=== PATIENT | female | born 1990 | race Two or more races ===

== ENCOUNTER 2021-06-29 07:10 | Emergency (ER) | payer MEDICAID, SELFPAY ==
[2021-06-29 08:05] VITALS: BP 111/70; PULSE 68; RESP 18; TEMP 36.5; O2SAT 99; BMI 20.6
--- NOTE | 2021-06-29 08:09 | ED_ITS ---
HPI - Extremity Injury (Upper) General Chief Complaint: Wound/Laceration Stated Complaint: finger lac Time Seen by Provider: 06/29/21 08:08 Source: patient Mode of arrival: ambulatory Limitations: no limitations History of Present Illness HPI narrative: left index superficial lac with knife ,pt is left handed complaint: injury to: left and finger (index) Other Extremity Injury: left: fingers (index finger) Other injuries: none Handedness: left Place: home Severity: mild Relieving factors: none Exacerbating factors: none Context: laceration Associated symptoms: denies other symptoms Related Data Allergies Allergy/AdvReac Type Severity Reaction Status Date / Time acetaminophen [Vicodin] Allergy Unknown Verified 07/06/19 00:00 hydrocodone [Vicodin] Allergy Unknown Verified 07/06/19 00:00 ibuprofen [IBUPROFEN] AdvReac Intermediate HEADACHES Unverified 04/10/20 16:05 From VICODIN Allergy Unknown ICTHY Uncoded 04/10/20 16:05 Motrin Allergy Unknown Uncoded 07/06/19 00:00 Review of Systems Review of Systems: Yes all other systems are reviewed and are negative ENT: Reports system reviewed and no additional complaints, except as documented Cardiovascular: Cardiovascular: Reports no additional cardiovascular complaints Respiratory: Respiratory: Reports no additional respiratory complaints Gastrointestinal: Gastrointestinal: Reports no additional gastrointestinal complaints Neurologic: Reports system reviewed and no additional complaints, except as documented [facility] Past Medical History Medical History Asthma Migraines Surgical History (Updated 06/29/21 @ 08:10 by Kayla Dinh) H/O tubal ligation Social History Social History Advance Directives: No Advance Directives Information Provided: No Physical Exam Vital Signs: Vital Signs: Last Vital Signs Temp 97.7 F 06/29/21 08:05 Pulse 68 06/29/21 08:05 Resp 18 06/29/21 08:05 BP 111/70 06/29/21 08:05 Pulse Ox 99 06/29/21 08:05 BMI result Body Mass Index 20.6 Const: General: cooperative, healthy appearing and no acute distress Nutritional Appearance: average body habitus Orientation/consciousness: patient oriented x3 HENMT: Head: Yes normal to inspection Face and sinus: Yes normal facial exam Chest: Chest palpation & inspection: normal inspection of the chest Resp: Effort & Inspection: normal respiratory effort Cardio: Jugular venous distension: no JVD Rate: regular rate GI: Inspection: Yes normal to inspection Neuro: General: patient oriented x3 Extrem: Other: left hand ,pt has full ROM left index finger,in the radial aspect proxinal phalanx index finger there is a very superficial laceration 2 cm in leght Procedures Laceration left index finger: Side (If applicable): left Size (cm): 2 Description: linear and clean Depth: simple, single layer Skin layer closed with: other (Dermabond) Discharge Plan Discharge Clinical Impression: Laceration Patient Disposition: Home, Self-Care Instructions: Laceration (ED) Additional Instructions: keep wound clean,return if fever,redness,drainage from the wound Stand Alone Forms: Work/School Release
[2021-06-29] MEDS: Diphth,Pertus(ACell),Tet Adult 0.5 ML SYRINGE IM (08:40)
== END 2021-06-29 08:55 | disposition home or self-care (01) ==
PROVIDERS: Emergency Provider Emergency Medicine
DX: S61.211A Laceration without foreign body of left index finger without damage to nail, initial encounter (principal); W26.0XXA Contact with knife, initial encounter; Y93.9 Activity, unspecified; Y92.009 Unspecified place in unspecified non-institutional (private) residence as the place of occurrence of the external cause; Y99.9 Unspecified external cause status
CPT/HCPCS: 12001; 90471; 90715; 99284

== ENCOUNTER 2022-12-13 10:58 | Outpatient (REF) | payer MEDICAID, SELFPAY ==
--- NOTE | ~2022-12-13 | MM_ITS ---
EXAMINATION: MM DIAGNOSTIC DIGITAL BREAST TOMOSYNTHESIS, BILATERAL US DIAGNOSTIC ULTRASOUND BREAST, RIGHT CLINICAL INFORMATION: 32-year-old with intermittent chronic lateral right breast discomfort sometimes cyclical. No erythema or discharge. Small palpable area noted right 8:00 position. Benign contralateral left breast ultrasound-guided core biopsy 2010 (benign breast tissue, no clip placed). The lifetime risk of breast cancer based on the Tyrer-Cuzick Model is 16%. COMPARISON: No prior mammography. TECHNIQUE: Digital breast tomosynthesis is performed in both the craniocaudal and mediolateral oblique views along with computer-aided detection (CAD). Synthesized 2D images are generated from the tomosynthesis. Ultrasound right breast is targeted to the areas of clinical concern. Patient is able to point to the area of palpable concern at time of imaging. Grayscale imaging and color Doppler are performed without and with harmonics. FINDINGS: The breasts are heterogeneously dense, which may obscure small masses (ACR BI-RADS breast composition Category c). There are no significant masses, abnormal calcifications, or other abnormalities. There is no cyst architectural abnormality. No skin thickening or coarsening of the stromal markings. The axilla are unremarkable. There are bilateral nipple piercings. Ultrasound right breast demonstrates tiny simple cyst at site of palpable concern 8:00 position anterior to mid depth measuring just under 0.5 cm. There is no solid mass or architectural abnormality. No focal duct ectasia. No skin thickening or edema tracking in soft tissue planes. No hyperemia. Results are discussed with the patient at time of visit. MM/MM tomosynthesis diagnostic BI IMPRESSION: -No mammographic evidence of malignancy or inflammatory changes. -Tiny simple cyst at site of palpable concern right breast 8:00 position. ASSESSMENT: BI-RADS 2: Benign RECOMMENDATION: 1. Patient should be managed based on the clinical impression. If there is still clinically palpable concerns, further evaluation may be considered with surgical consult. Decision to proceed with biopsy should be based on clinical grounds and degree of clinical concern. 2. Otherwise, routine annual screening mammography, beginning age 40, or earlier as clinical risk factors warrant. This patient's information was entered into a reminder system with a target due date for their next mammogram.
== END 2022-12-13 10:59 | disposition home or self-care (01) ==
LOC: HO.MAMMO 10:58
PROVIDERS: PCP Advanced Practice Midwife; Visit Provider Advanced Practice Midwife
DX: N63.15 Unspecified lump in the right breast, overlapping quadrants (principal)
CPT/HCPCS: 76642; 77062; 77066

== ENCOUNTER 2022-12-30 08:04 | Outpatient (REF) | payer MEDICAID, SELFPAY ==
--- NOTE | 2022-12-30 08:10 | EMG_ITS ---
Right median and ulnar motor and sensory studies were performed. Right radial sensory study was performed and paraspinal muscles were tested with a needle. IMPRESSION: Mild to moderate right median neuropathy across carpal tunnel. MD DANIELLE Blake/KELSEY / [id number]
== END 2022-12-30 08:05 | disposition home or self-care (01) ==
LOC: HO.NEURO 08:04
PROVIDERS: PCP Advanced Practice Midwife; Visit Provider Nurse Practitioner Family
DX: G56.01 Carpal tunnel syndrome, right upper limb (principal)
CPT/HCPCS: 95886; 95909

== ENCOUNTER 2023-03-01 14:18 | Outpatient (REF) | payer MEDICAID, SELFPAY ==
--- NOTE | ~2023-03-01 | US_ITS ---
EXAMINATION: US EXTREMITY NONVASCULAR CLINICAL INFORMATION: 3 cm painful mass dorsal aspect left foot. COMPARISON: None TECHNIQUE: Sonographic imaging performed by the mineral technologist along the dorsal foot in region of palpable mass. 12 MHz linear transducer was utilized. The images acquired are uploaded into the electronic picture archive for review. FINDINGS: The limited imaging performed shows presence of a 2.2 x 1 x 2.4 cm cystic structure in the dorsal foot. There are septations within this structure which has no internal flow on color Doppler imaging. The surrounding soft tissues have normal echotexture. On the limited imaging obtained, there is no visible tendon within the [id number]. US/US extremity nonvascular IMPRESSION: A septated cystic structure in the dorsal foot at the site of palpable concern could represent a ganglion cyst.
== END 2023-03-01 14:19 | disposition home or self-care (01) ==
LOC: HO.US 14:18
PROVIDERS: PCP Advanced Practice Midwife; Visit Provider Registered Nurse
DX: R22.42 Localized swelling, mass and lump, left lower limb (principal)
CPT/HCPCS: 76882

== ENCOUNTER 2023-04-12 12:16 | Outpatient (AMB) | payer MEDICAID, SELFPAY ==
--- NOTE | 2023-04-12 12:24 | A.OFFVIS_ITS ---
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 States CTS started about 5-6 yrs ago. States its worse in the morning and at night time. She has constant numbness and tingling during the day. EMG done only in right hand. Patient reports she is also having numbness in left hand. States she also has pain by base of her thumb with gripping and pinching motion. 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 She complains of numbness and tingling primarily in her right hand but also in her left. Feels that her whole hand goes numb. Her symptoms are intermittent but daily. 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 She also complains of pain about the medial aspect of the elbow that can radiate up to our armpit and some pain that radiates up to her shoulder. He is not sure if she has numbness in her small finger when her hand gets numb. [facility] Medical History Asthma Migraines Surgical History (Updated 06/29/21 @ 08:10 by Kayla Dinh) H/O tubal ligation Social History Current occupational status: employed Current occupation: [employer]/ rt hand Physical Exam Const General: cooperative, healthy appearing and no acute distress Orientation/consciousness: oriented to person and oriented to place HEENT Head: Yes normocephalic and Yes atraumatic Eyes EOM: EOMs intact bilaterally Resp Effort & Inspection: normal respiratory effort and able to speak in complete sentences Cardio Jugular venous distension: no JVD Skin General skin exam: turgor normal Rashes: no rashes Neuro General: oriented to person and oriented to place Extrem Other: Evaluation of right Upper Extremity: Neuro: Median, ulnar, radial nerves motor and sensory grossly intact. No thenar or intrinsic wasting Good finger cross. Vascular: Cap refill brisk. ROM: Can bring fingers closed to a fist and back out to extension. Can oppose thumb to fingertips Smooth and painless wrist ROM Skin: No lacerations or abrasions. General: No eccymosis. No erythema or evidence of infection. EMG nerve conduction study: Study performed on the right side only. Impression: Mild to moderate right median neuropathy across the carpal tunnel Dr. Ramirez 12/30/2022 Please see his note for additional information as necessary Psych Appearance: grossly normal Affect: normal affect Attitude: cooperative Assessment & Plan Assessment & Plan (1) Carpal tunnel syndrome of right wrist: Code(s): G56.01 - Carpal tunnel syndrome, right upper limb Plan Assessment and plan: 1. Right carpal tunnel, mild to moderate Symptoms intermittent but daily I educated the patient about this condition We discussed operative and non operative treatment options. I did explain that the carpal tunnel surgery would likely not help with pain about the elbow are extending up to the shoulder and her neck. She wishes to proceed with surgery The risks and benefits of operative treatment were discussed with the patient and the patient wishes to proceed with surgery. These risks include, but are not limited to risk of damage to blood vessels, nerves, tendons, infection, recurrence, incomplete relief of preoperative symptoms, persistent pain, possible need for further surgery and the risks associated with regional blocks and anesthesia. The plan is to take the patient to the operating room sometime in the next few weeks for the following procedures: 1. Right carpal tunnel release under local 2. [ ] All of the preoperative paperwork including the consent was filled out today. All the patient's questions were answered. The patient understands that they will be contacted by our production planner scheduler soon to schedule this procedure She denies having diabetes or being on blood thinners. She is requesting having a note explained that she would need to be off of work after surgery until her 1st follow-up or for about 2 weeks after surgery. I let Malathi know about this. We will then decided her 1st postop whether not she needs to be off for an additional 2 weeks or if she can be on light duty.. She is happy with this plan. Coding Level of Care Code New Pt Level 4 (06328) Diagnoses Carpal tunnel syndrome of right wrist G56.01
[2023-04-12 13:03] VITALS: BMI 20.9
== END 2023-04-12 12:58 | disposition home or self-care (01) ==
PROVIDERS: PCP Advanced Practice Midwife; Visit Provider Orthopaedic Surgery
DX: G56.01 Carpal tunnel syndrome, right upper limb (principal)
CPT/HCPCS: 99204

== ENCOUNTER → 2023-04-12 12:16 | Outpatient (BNVA) | payer MEDICAID, SELFPAY | PROVIDERS: PCP Advanced Practice Midwife; Visit Provider Orthopaedic Surgery ==

== ENCOUNTER 2023-05-23 06:19 | Day surgery (SDC) | payer MEDICAID, SELFPAY ==
[2023-05-23 06:54] VITALS: BMI 21.3
--- NOTE | 2023-05-23 07:59 | MHC.SHP ---
Pre-Procedural Eval Section A Date of Service: 05/23/23 The patient is an INPATIENT: No Changes since office visit: No Cold of Flu in the past 2 weeks, No New Medical Problems, No Changes in Medication and No Patient answered all questions The History & Physical has been completed within 30 days and I have reviewed it.: Yes Section B Chief Complaint: Carpal tunnel syndrome, right upper limb Allergies: Allergies Allergy/AdvReac Type Severity Reaction Status Date / Time acetaminophen [Vicodin] Allergy Unknown Unknown Verified 05/23/23 06:56 hydrocodone [Vicodin] Allergy Unknown Unknown Verified 05/23/23 06:56 ibuprofen [IBUPROFEN] AdvReac Intermediate HEADACHES Verified 05/23/23 06:56 From VICODIN Allergy Unknown ICTHY Uncoded 04/12/23 12:44 Motrin Allergy Unknown Unknown Uncoded 04/12/23 12:44 Plan I have reviewed the history and physical and performed a pertinent physical examination on my patient. No changes have occurred unless specified. Time Spent With Patient Time: Total time managing care of this patient today ____ minutes.
--- NOTE | 2023-05-23 08:00 | W.PM.OPN ---
Operative Note Operative Note Date of Service: 05/23/23 Narrative: Preop diagnosis: 1. Right Carpal tunnel syndrome Postop diagnosis: same Procedure: 1. Right Carpal tunnel release Surgeon: Veda Jay MD Anesthesia: local block using 1% lidocaine with epinephrine Findings: Thickened transverse carpal ligament. EBL: Less than 5 mL Specimens: None Complications: None Disposition: Brought to recovery room in stable condition Plan: Follow-up for 10-14 days for wound check and suture removal Indications: The patient is a 32 years old, with right carpal tunnel syndrome that has been unresponsive to nonoperative management. The risks and benefits of operative treatment including but not limited to risk of damage to blood vessels, nerves, tendons, infection, persistent pain, persistent symptoms, or possible need for additional surgery were discussed with the patient and the patient wishes to proceed with surgery. Procedure: Once consent was obtained a local block was performed using a combination of 1% lidocaine with epinephrine. The patient was then brought back to the operating suite and placed on the operative table in supine position. The right upper extremity was prepped and draped in a standard surgical fashion. Once assured that we had a good block, a 2.0 cm longitudinal incision was made centered over the carpal tunnel. The incision was made through the skin to the subcutaneous tissues using a #15 blade. Dissection was made down to the level of the transverse carpal ligament with care being taken to protect the palmar cutaneous nerve. Once the transverse carpal ligament was clearly visualized, a longitudinal incision was made in the transverse carpal ligament 1st using a #15 blade, then using tenotomy scissors under direct visualization. Care was taken to look for and protect the motor branch of the median nerve when seen in this area. Once satisfied with our carpal tunnel release the wound was copiously irrigated with normal saline and hemostasis was obtained with a brief period of local pressure. The skin edges were reapproximated with some 5.0 nylon suture material and a sterile dressing was applied. The patient appears to have tolerated the procedure well and with no complications. All digits were well vascularized at the conclusion of the case.
[2023-05-23 08:40] VITALS: BP 102/63; PULSE 52; RESP 16; O2SAT 98
== END 2023-05-23 08:41 | disposition home or self-care (01) ==
PROVIDERS: Visit Provider Orthopaedic Surgery
PROC: (CPT 64721; principal; 2023-05-23 07:30)
DX: G56.01 Carpal tunnel syndrome, right upper limb (principal); R20.0 Anesthesia of skin; R20.2 Paresthesia of skin; J45.909 Unspecified asthma, uncomplicated; G43.909 Migraine, unspecified, not intractable, without status migrainosus; Z88.8 Allergy status to other drugs, medicaments and biological substances
CPT/HCPCS: 64721; J0171; J2795

== ENCOUNTER → 2023-05-23 06:19 | Outpatient (BNV) | payer MEDICAID, SELFPAY | PROVIDERS: Visit Provider Orthopaedic Surgery | DX: G56.01 Carpal tunnel syndrome, right upper limb (principal) | CPT/HCPCS: 64721 ==

== ENCOUNTER 2023-06-06 09:19 | Outpatient (AMB) | payer MEDICAID, SELFPAY ==
[2023-06-06 09:26] VITALS: BMI 21.3
--- NOTE | 2023-06-06 09:26 | MHC.OFFVIS ---
Intake Vital Signs 06/06/23 09:26 Height 5 ft 4 in Weight 124 lb BMI 21.3 Intake Visit Reasons: PO-Rt CTR 05/23/23 AR Intake Note: Jhon 32 yr old female presents today for her P/O visit for her Right CTR from 05/23/23. States numbness has improved however she has soreness around incision. 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 She is status post a right carpal tunnel release with il on 05/23/2023. She says that she has had very good resolution of her numbness and tingling and nighttime symptoms. She does still have some soreness around the incision site and some numbness just distal to that in the palm. 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 This has led to her doing too much heavy work with her right hand. She is here today with her who is concerned that she is being forced to do too much heavy work with her right hand when she is at work, and believes that keeping her out of work as he only way to make sure that she adequately rest her hand. She would also like to know when she can go fishing. [facility] Medical History Asthma Migraines Surgical History (Updated 06/29/21 @ 08:10 by Kayla Dinh) H/O tubal ligation Social History Current occupational status: employed Current occupation: [employer]/ rt hand Physical Exam Vital Signs: BMI result Body Mass Index 21.3 Extrem Other: Patient was alert oriented and in no acute distress. Her incision is healing well with no erythema drainage or evidence of infection. Sutures removed and Steri-Strips applied. She has normal sensation to the tips of all digits today. She does have some decreased subjective sensation in the middle of the palm just distal to her incision. No swelling or erythema. With encouragement I can get her to make a fist and extend all of her digits. She did have some discomfort over the dorsal aspect of the fingers when her hand was brought into full flexion. I showed her some exercises to work on prevent ting stiffness. Cap refill brisk to all digits Assessment & Plan Assessment & Plan (1) Carpal tunnel syndrome of right wrist: Code(s): G56.01 - Carpal tunnel syndrome, right upper limb Plan Assessment and plan: 1. Right carpal tunnel syndrome status post carpal tunnel release Date of surgery 05/23/2023 She has had excellent resolution of her numbness and tingling in her fingers and of her nighttime symptoms. She does have a little numbness in the palm just distal to the incision. She has some mild stiffness from not bring her fingers close to a fist. I showed her some exercises to work on. She appears to be doing well postoperatively. I educated her about the postoperative course. Sounds like she has been having to do too much heavy work with her right hand on the day she has been called into [employer]. After talking with the patient and her . It sounds like the only way to really protect her hand is to keep her out of work. S we will keep her out of work for the next 2 weeks. She can return to work in 2 weeks at full duty. He notes full duty I did explain to her that if possible she should be steadily increasing the work she does with her right hand rather than immediately being the person to grab some 50 lb object. She understands this. I also said that fishing and pushups and heavy activities like these ought to be waiting for at least 4-6 weeks from now. She is happy with the current plan can follow up p.r.n. Coding Level of Care Code Global (01746) Diagnoses Carpal tunnel syndrome of right wrist G56.01
== END 2023-06-06 09:52 | disposition home or self-care (01) ==
PROVIDERS: PCP Advanced Practice Midwife; Visit Provider Orthopaedic Surgery
DX: G56.01 Carpal tunnel syndrome, right upper limb (principal)
CPT/HCPCS: 99024

== ENCOUNTER → 2023-06-06 09:19 | Outpatient (BNVA) | payer MEDICAID, SELFPAY | PROVIDERS: PCP Advanced Practice Midwife; Visit Provider Orthopaedic Surgery ==

== ENCOUNTER 2023-10-03 10:00 | Outpatient (REF) | payer MEDICAID, SELFPAY ==
[2023-10-04 05:29] LABS: ~HepC Num1 0.16 S/CO (0.00-0.79); ~Hepatitis C Antibody Nonreactive (Nonreactive)
[2023-10-06 09:33] LABS: HIV RNA PCR Qn Copies Not Detected Copies/mL; HIV RNA PCR Qn Log Copies Not Detected Log cps/mL
== END 2023-10-03 10:01 | disposition home or self-care (01) ==
LOC: HO.HHCL 10:00
PROVIDERS: Visit Provider Nurse Practitioner Family
DX: Z11.4 Encounter for screening for human immunodeficiency virus [HIV] (principal); Z70.8 Other sex counseling
CPT/HCPCS: 36415; 86803; 87536; 87900

== ENCOUNTER 2024-02-06 07:38 | Emergency (ER) | payer MEDICAID, SELFPAY ==
[2024-02-06 07:45] VITALS: BP 105/67; PULSE 74; RESP 16; TEMP 36.6; O2SAT 99; BMI 20.6
--- NOTE | 2024-02-06 07:59 | ED.EXTPRO ---
HPI - Extremity Problem General Chief complaint: Extremity Problem Stated complaint: l foot pain Time Seen by Provider: 02/06/24 07:59 Source: patient Mode of arrival: ambulatory Limitations: no limitations History of Present Illness ED Provider: SARAH HYLTON PA-C HPI Narrative: 33-year-old female with pmhx significant for asthma and migraines presents to the ED today for evaluation of left foot pain x1 year. Reports she believes she has a cyst to the top of her left foot. Admits to worsening pain which began today. Notes the area has been red/ warm/ tender. Admits to pain with ambulation/bearing weight on her left foot. Reports taking tylenol at home without relief. She last took Tylenol last night. States that she currently works at [employer] ?[employer]?? and has to stand for extended periods of time however this is making it difficult for her to work. She tells me that she has followed up with her primary care provider regarding this and was provided with a referral however has not followed up. Denies fever, chills, numbness/tingling/weakness of the LLE. Denies injury or trauma. Related Data Home Medications ?Medication ?Instructions ?Recorded ?Confirmed multivitamin with folic acid 400 1 tab PO DAILY 04/12/23 mcg tablet (Daily-Michael (with folic acid)) Allergies Allergy/AdvReac Type Severity Reaction Status Date / Time acetaminophen [Vicodin] Allergy Unknown Unknown Verified 02/06/24 07:49 hydrocodone [Vicodin] Allergy Unknown Unknown Verified 02/06/24 07:49 ibuprofen [IBUPROFEN] AdvReac Intermediate HEADACHES Verified 02/06/24 07:49 From VICODIN Allergy Unknown ICTHY Uncoded 06/06/23 09:43 Motrin Allergy Unknown Unknown Uncoded 06/06/23 09:43 Review of Systems Review of Systems: Constitutional: No fever, chills, fatigue, night sweats, weight changes ENT/Mouth: No ear pain, hearing loss, nasal congestion, sinus pain, rhinorrhea, sore throat Eyes: No eye pain, swelling, redness, vision changes, discharge Cardio: No chest pain, palpitations, SANDERS, orthopnea, peripheral edema Pulm: No SOB, cough, sputum, wheezing, dyspnea, hemoptysis GI: No nausea, vomiting, hematemesis, abdominal pain, diarrhea, constipation, hematochezia, melena : No irregular bleeding, dysuria, frequency, urgency, hesitancy, hematuria, flank pain, urinary flow changes, urinary incontinence or retention MSK: No back pain, neck pain, joint pain, myalgias, +left foot pain Skin: No lesions, rashes Neuro: No weakness, numbness, paresthesias, LOC, dizziness, headache Psych: No anxiety/panic, depression, SI/HI, AH/VH All other systems reviewed and are negative. [facility] Past Medical History Attestation statement: The following information was validated with the patient. 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 Physical Exam Vital Signs: Vital Signs: Last Vital Signs Temp 97.8 F 02/06/24 10:03 Pulse 74 02/06/24 10:03 Resp 16 02/06/24 10:03 BP 105/67 02/06/24 10:03 Pulse Ox 99 02/06/24 10:03 O2 Del Method Room Air 02/06/24 10:03 BMI result Body Mass Index 20.6 Vital signs stable, afebrile Const: General: cooperative, healthy appearing, comfortable and no acute distress Orientation/consciousness: patient oriented x3 Limitations: no limitations HEENT: Head: Yes normal to inspection, Yes No palpable skull fracture present, Yes normocephalic and Yes atraumatic Eyes: General: appearance normal, both eyes and all related structures Pupils: Equal, round and reactive pupils present Neck: Neck: Yes normal visual inspection Resp: Effort & Inspection: normal respiratory effort and able to speak in complete sentences Auscultation: clear to auscultation bilaterally Cardio: Rate: regular rate Rhythm: regular rhythm Neuro: General: patient oriented x3 and gait normal Cranial nerves: Yes Equal, round and reactive pupils present Extrem: Other: + Noted localized swelling/erythema to dorsal aspect of left foot just distal to ankle. Noted fluctuance and tenderness. No crepitus or palpable deformity. Full ROM intact to left ankle and all toes on left foot. 2+ PT and DP pulse intact. Sensation intact. No calf tenderness. No peripheral edema. Course Course Course Narrative: 958-- Patient with localized swelling/ erythema to dorsum of foot. She does have history of cyst however I note concern for possible abscess vs cellulitis. I did offer to obtain xray however patient declined and would prefer ultrasound which was ordered to r/o abscess. Patient now extremely agitated due to long wait time for ultrasound, stopping multiple staff, yelling, stating that she has been waiting long enough for the ultrasound and needs to be next. RN explained to patient that there is a wait for ultrasound and that they will get to her when they can. Patient states she would like to leave AMA to be seen at another hospital. I did have a discussion with patient regarding the risks of leaving the ED without completing her work up including but not limited to infection, pain, disability, and . patient verbalizes understanding and will be signing out AMA. Medications Administered Discontinued Medications Generic Name Dose Route Start Last Admin Trade Name Freq PRN Reason Stop Dose Admin Ketorolac Tromethamine 30 mg 02/06/24 08:18 02/06/24 08:26 Ketorolac Tromethamine 30 Mg/Ml Vial IM 02/06/24 08:19 30 mg ONCE ONE Administration Medical Decision Making Medical Decision Making [facility] Narrative: 33-year-old female with pmhx significant for asthma and migraines presents to the ED today for evaluation of left foot pain x1 year. Vital signs stable, afebrile. She is nontoxic appearing in no acute distress. On exam, patient is ambulating with steady gait. Noted localized swelling/erythema to dorsal aspect of left foot just distal to ankle. Noted fluctuance and tenderness. No crepitus or palpable deformity. Full ROM intact to left ankle and all toes on left foot. 2+ PT and DP pulse intact. Sensation intact. No calf tenderness. No peripheral edema. Differential diagnosis includes cyst, abscess, cellulitis. Unlikely gangrene, osteomyelitis, fracture, MSK sprain/strain, dislocation, neurovascular compromise, compartment syndrome, threat to limb. Plan for ultrasound, pain control and re-evaluation. Differential Diagnosis Differential Diagnoses: The differential diagnosis associated with the presentation includes as above. Admission/Observation Consideration of admission/observation: Escalation of care including admission/observation considered Admission considered on presentation. External Record Review External record reviewed: Inpatient record Tests considered The following testing was considered but not selected: I considered obtaining ultrasound of soft tissue however patient decided to leave AMA before this was completed. Critical Care Time Critical Care Time Critical Care Time: No Discharge Plan Discharge Clinical Impression: Localized swelling of left foot Patient Disposition: Left Against Medical Advice Prescriptions: No Action multivitamin with folic acid [Daily-Michael (with folic acid)] 400 mcg tablet 1 tab PO DAILY Stand Alone Forms: Against Medical Advice Interventions: ED Discharge Assessment Last Done: 02/06/24 10:03 Discharge Date/Time: 02/06/24 10:03 Print Language: Citizen Of [place]
[2024-02-06] MEDS: Ketorolac Tromethamine 30 MG/ML VIAL IM (08:26)
--- NOTE | 2024-02-06 08:32 | PC.NURSE ---
pt informed this RN that she does not want any xrays done, that we are running up her medical bill . pt stated that she has had this same thing for over a year, she knows that its just the cysts and thinks one of them might have burst. Pt requesting an ultrasound at this time, Nita KENNEDY made aware.
--- NOTE | 2024-02-06 09:57 | PC.NURSE ---
pt stated this is bullshit, gina been here since before shift change . explained level of care to pt and plan of care, informed her she will be getting an u/s. pt continued to swear at this RN, informed that she is leaving to go to [facility], pt requesting a work note. pt will AMA
--- NOTE | 2024-02-06 10:02 | PC.NURSE ---
informed pt she will be leaving AMA, pt yelled at this RN that shes not leaving AMA that we are not doing our fucking jobs pt stated again that she has been here for 3 hours and that she doesn't understand why she isn't getting cared for.
[2024-02-06 10:03] VITALS: BP 105/67; PULSE 74; RESP 16; TEMP 36.6; O2SAT 99
== END 2024-02-06 10:03 | disposition left against medical advice (07) ==
PROVIDERS: Emergency Provider Emergency Medicine; PCP Advanced Practice Midwife
DX: R60.0 Localized edema (principal); M79.672 Pain in left foot
CPT/HCPCS: 96372; 99283; 99284; J1885

== ENCOUNTER 2024-02-17 14:10 | Emergency (ER) | payer MEDICAID, SELFPAY ==
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
[2024-02-17 14:31] VITALS: BP 113/72; PULSE 88; RESP 17; TEMP 37.2; O2SAT 99; BMI 19.8
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
[2024-02-17 16:51] VITALS: BP 129/88; PULSE 74; RESP 16; TEMP 36.8; O2SAT 100
[2024-02-17 17:13] VITALS: BP 129/88; PULSE 74; RESP 16; TEMP 36.8; O2SAT 100
== END 2024-02-17 17:14 | disposition home or self-care (01) ==
PROVIDERS: Emergency Provider Internal Medicine
DX: S93.402A Sprain of unspecified ligament of left ankle, initial encounter (principal); Y04.0XXA Assault by unarmed brawl or fight, initial encounter; Y93.89 Activity, other specified; Y92.410 Unspecified street and highway as the place of occurrence of the external cause; Y99.9 Unspecified external cause status
CPT/HCPCS: 73630; 99283

== ENCOUNTER 2024-03-16 09:45 | Outpatient (REF) | payer MEDICAID, SELFPAY ==
[2024-03-16 13:15] LABS: MANUAL DIFF FLAG NO
[2024-03-16 13:39] LABS: Basophils Percent Auto 0.4 % (0-2); Eosinophils Absolute Auto 0.2 X10*3/uL (0.0-0.4); Eosinophils Percent Auto 2.4 % (0-4); Hematocrit 42.7 % (37.0-47.0); Imm Gran Abs Auto 0.02 X10*3/uL (0.00-0.03); Imm Gran Pct Auto 0.3 % (0.0-0.4); Lymphocytes Absolute Auto 1.4 X10*3/uL (1.2-4.9); Mean Corpuscular HGB Conc 32.8 g/dl (31.0-35.0); Mean Corpuscular Volume 97.7 fL (80.0-98.0); Mean Platelet Volume 11.6 fL (9.4-12.3); Monocytes Absolute Auto 0.5 X10*3/uL (0.1-1.2); Monocytes Percent Auto 6.8 % (2-11); Neutrophils Absolute Auto 5.3 x10*3/uL (2.0-8.3); Neutrophils Percent Auto 71.1 % (45-73); Platelet Count 195 X10*3/uL (160-400); Red Blood Count 4.37 X10*6/uL (4.20-5.50); White Blood Count 7.4 X10*3/uL (4.8-10.8)
[2024-03-16 13:48] LABS: Estimated Average Glucose 100 mg/dL; Hemoglobin A1c % 5.1 % (<6.0)
[2024-03-16 14:06] LABS: Alanine Aminotransferase 28 U/L (0-31); Albumin Level 4.3 g/dL (3.5-5.0); Alkaline Phosphatase 62 U/L (39-117); Anion Gap 9 (12-20); Aspartate Amino Transferase 27 U/L (5-31); Bilirubin Total 0.4 mg/dL (0.0-1.0); Blood Urea Nitrogen 13 mg/dL (9-16); Calcium 9.4 mg/dL (8.4-10.2); Carbon Dioxide 29 mmol/L (22-29); Chloride 106 mmol/L (96-108); Estimated Glomerular Filt Rate > 60; Glucose Random 89 mg/dL (60-115); Sodium 140 mmol/L (135-145); Total Protein 7.4 g/dL (6.5-8.0)
== END 2024-03-16 09:46 | disposition home or self-care (01) ==
LOC: HO.HHCL 09:45
PROVIDERS: Visit Provider Student in an Organized Health Care Education/Training Program
DX: Z01.810 Encounter for preprocedural cardiovascular examination (principal)
CPT/HCPCS: 36415; 80053; 83036; 85025

== ENCOUNTER 2024-06-16 10:59 | Outpatient (REF) | payer MEDICAID, SELFPAY ==
[2024-06-18 13:44] LABS: Bacterial Vaginosis PCR POSITIVE (Negative); Candida Group PCR NOT DETECTED (Not Detect); Candida glab krusei PCR NOT DETECTED (Not Detect); Trichomonas vaginalis PCR NOT DETECTED (Not Detect)
== END 2024-06-16 11:00 | disposition home or self-care (01) ==
LOC: HO.HHCLNP 10:59
PROVIDERS: Visit Provider Family Medicine
DX: R39.9 Unspecified symptoms and signs involving the genitourinary system (principal)
CPT/HCPCS: 0352U

== ENCOUNTER 2024-10-17 09:31 | Outpatient (AMB) | payer MEDICAID, SELFPAY ==
[2024-10-17 09:43] VITALS: BP 121/64; PULSE 78; O2SAT 99; BMI 21.3
--- NOTE | 2024-10-17 09:43 | A.OFFVIS_ITS ---
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 Required: No Allergies acetaminophen [Vicodin] Allergy (Unknown, Verified 10/17/24 09:44) Unknown hydrocodone [Vicodin] Allergy (Unknown, Verified 10/17/24 09:44) Unknown ibuprofen [IBUPROFEN] Adverse Reaction (Intermediate, Verified 10/17/24 09:44) HEADACHES From VICODIN Allergy (Unknown, Uncoded 10/17/24 09:44) ICTHY Motrin Allergy (Unknown, Uncoded 10/17/24 09:44) Unknown Medication List - Last Reconciled 10/17/24 by Marie Haas, ORACLE DBA multivitamin with folic acid 400 mcg (Daily-Michael (with folic acid)) 1 tab PO DAILY tramadol 50 mg PO Q6H PRN HPI Comments Details: The patient is a 34-year-old female presenting with chronic neck pain/left shoulder pain. She reports experiencing this pain for two years, intensifying in the past year to the extent of interrupting her sleep and causing severe functional impairment. 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 She notes associated swelling in the left hand and trouble with fine motor tasks, which has prompted her pursuit of medical intervention. Patient is left hand dominant. Despite prior investigation resulting in a right-hand carpal tunnel surgery, her persistent left-sided symptoms were never addressed, leading to today's visit. The patient's current medication?Flexeril?has not been effective, bringing about continued significant impact on her daily life, including inability to perform required occupational duties, necessitating not just treatment but also documented work restrictions. - Onset: Two years ago. - Primary Location: Left shoulder - Radiation: Down the left arm, affecting hand and shoulder. - Quality and Character: Described as pulling, tightness, and cracking sensa tion. - Exacerbating Factors: Heavy lifting, repetitive work tasks, hair styling. - Alleviating Factors: Massages provide partial relief without lasting effect. - Interference: Affects occupational performance, causes weight loss, impacts sleep, and daily functioning. - Previous Treatment: Cyclobenzaprine provided limited to no relief. - Affect: Wakes patient from sleep in tears, causing emotional distress. - Analgesia: Prescribed Cyclobenzaprine; ineffective at current dosage. - Adverse Effects: Hypersomnia from medication and continued nocturnal awakening. - Activities of Daily Living: Impaired due to pain, interfering with work responsibilities and personal tasks. - Aberrant Drug Related Behaviors: None reported. [facility] Medical History Migraines Asthma Surgical History H/O tubal ligation Social History Current occupational status: employed Current occupation: [email or web address]/ rt [employer] Review of Systems Const Details: - Musculoskeletal: Reports chronic neck pain, left shoulder pain. - Neurologic: Reports numbness in left hand and arm, carpal tunnel symptoms. Physical Exam Vital Signs: Last Vital Signs Pulse 78 10/17/24 09:43 BP 121/64 10/17/24 09:43 Pulse Ox 99 10/17/24 09:43 Oxygen Delivery Method Room Air 10/17/24 09:43 BMI result Body Mass Index 21.3 General: awake, alert, oriented. Answers questions appropriately. Fully engaged in examination. Skin: warm, dry, intact HEENT: Normocephalic. Hearing intact. Cardiac: External chest normal in appearance. Respiratory: No cough, audible wheezing or stridor. Abdomen: without gross distension. MS: No obvious swelling or deformities. Left shoulder: Tender to palpation over scapula. Tenderness left rhomboid. Tenderness left middle trapezius. Pain with overhead reach. Tenderness midline cervical vertebrae cervical paraspinal muscles on the left. Facet loading positive. Full cervical range of motion. Bilateral upper extremity strength 5/5 Neurological: Oriented to person, place, time and situation. Thought process intact. No gait abnormalities appreciated. Psychiatric: Appropriate mood and affect. Good judgment and insight. Assessment & Plan Assessment & Plan (1) Left shoulder pain: Code(s): M25.512 - Pain in left shoulder Category: Medical (2) Myofascial neck pain: Code(s): M54.2 - Cervicalgia Category: Medical (3) Arm paresthesia, left: Code(s): R20.2 - Paresthesia of skin Category: Medical Plan I plan to evaluate through X-rays and physical therapy sessions, with an aim to alleviate symptoms through strengthening and ergonomic improvements. I will also order a functional capacity evaluation to document necessary occupational modifications. A different muscle relaxant will be trialed due to the ineffectiveness of Cyclobenzaprine. Nerve conduction studies will be repeated to reassess left-sided symptoms and confirm any underlying issues. An immediate work note will exempt her from duties that risk exacerbation, with a structured follow-up to monitor her progress and adjust the treatment plan as needed. I discussed with the patient the diagnosis of chronic neck and left shoulder pain. We reviewed management options, including the benefits and risks of initiating a new muscle relaxant, X-ray imaging, and the potential need for future injection therapy. Immediate work accommodations were facilitated through a work note. We will follow up as therapy progresses and consider treatment adjustments based on her response. - Undergo X-rays for your neck and shoulder. - Begin physical therapy as scheduled. - Repeat nerve conduction studies for the left arm. - Follow up on functional capacity evaluation orders. - Continue with new prescribed muscle relaxant as directed. - Avoid heavy lifting and repetitive movements at work. - Return for follow-up appointments to review progress and adjust treatment. - Notify healthcare provider of any new or worsening symptoms. Patient was informed and verbally consented to the use of an ambient scribe for clinic note documentation during this visit. Chronic neck and left shoulder pain Orders: Orders XR cervical spine w flex/ext Today M54.2 - Cervicalgia NE electromyogram (EMG) Today R20.2 - Paresthesia of skin Functional Capacity Exam Today M25.512 - Pain in left shoulder, M54.2 - Cervicalgia XR shoulder LT min 2V Today M25.512 - Pain in left shoulder PT Evaluation and Treatment Today M25.512 - Pain in left shoulder, M54.2 - Cervicalgia Medications: New tizanidine May cause drowsiness, no driving while taking this medication. Discontinue Flexeril prior to starting this medication. 2 mg PO TID PRN 90 tabs 3RF muscle spasticity Coding Level of Care Code New Pt Level 4 (00233) Complex EM visit Add On G2211 Diagnoses Left shoulder pain M25.512 Myofascial neck pain M54.2 Arm paresthesia, left R20.2
--- OUTSIDE RECORDS SUMMARY | 2024-10-17 10:37 | XMS_ITS | Clinical Summary ---
Author Organization [facility] Address [address] [place] [phone] Phone Care Team Providers Care Antenna Specialist Name Role Phone Unavailable Primary Care Provider Unavailabl e Immunizations Immunization Administration Dates Next Due DTP 11/16/1993, 0,03/18/1989,1988,1988 Hep B, ped/adol 08/10/2000,03/31/2000,02/23/2000 Hib (PRP-T) 02/06/1990 MMR 02/23/2000,09/08/1989 OPV 11/16/1993, 0,03/18/1989,1988,1988 Td (adult) (MBL), 2 Lf tetan us toxoid, PF, adsorbed 03/31/2000 Social History Tobacco Use Types Packs/Day Years Used Date Smoking Tobacco: Never Assessed Comments Unknown Sex and Gender Information Value Date Recorded Sex Assigned at Not on file Legal Sex Female 4:13 PM EDT Gender Identity Not on file Sexual Orientation Not on file Plan of Treatment Health Maintenance Due Date Last Done Comments DTaP,Tdap,and Td Vaccines (6 - Tdap) 04/01/2000 03/31/2000, 11/16/1993, 02/06/1990, Additional history exists Varicella Vaccines (1 of 2 - 13+ 2-dose series) 2001 Influenza Vaccines (#1) 2024 COVID-19 Vaccine (2023- season) 2024 HIB Vaccines Completed 02/06/1990 IPV Vaccines Completed 11/16/1993, 01/22, 03/18/1989, Additional history exists MMR Vaccines Completed 02/23/2000, 09/08/1989 Hepatitis B Vaccines Completed 08/10/2000, 03/31/2000, 02/23/2000 HPV Vaccines Aged Out No longer eligi ble based on patient's age to complete this topic Hepatitis A Vaccines Aged Out No long er eligible based on patient's age to complete this topic Men B Vaccine Aged Out No longer elig ible based on patient's age to complete this topic Meningococcal Vaccine Aged Out No enio marciano eligible based on patient's age to complete this topic Pneumococcal Vaccine Aged Out No long er eligible based on patient's age to complete this topic
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
--- OUTSIDE RECORDS SUMMARY | 2024-10-17 10:37 | XMS_ITS | Encounter Summary ---
Author Organization [employer] Address [address] [place] [address] [address] [place] [address] Care Team Providers Care Electric Meter Repairer Name Role Phone RonaldaminapilarMarionAlaina POOL INSTALLER Primary Care Provider [phone] Reason for Visit * Reason Onset Date Comments Med Refill 09/14/2024 Encounter Details Date Type Department Care Team (Late st Contact Info) Description 09/14/2024 Refill [facility] [address] [place] [address] Mansi Jett FNP [address] [place] [address] Vitamin deficiency Social History Tobacco Use Types Packs/Day Years Used Date Smoking Tobacco: Every Day Cigarettes Passive Smoke Exposure: Current Smokeless Tobacco: Never Alcohol Use Standard Drinks/Week Comments Not Currently [...] Orientation Straight 05/24/2022 10 :18 AM EDT documented as of this encounter Plan of Treatment Not on file documented as of this encounter Visit Diagnoses Diagnosis Vitamin deficiency Unspecified vitamin deficiency documented in this encounter Additional Health Concerns Assessment Noted Time PHQ-9 Depression Total Score: 18 024 10:53 AM EDT documented as of this encounter Care Teams Electric Meter Repairer Relationship Specialty Start Date End Date Alaina Falcon FNP [address] [place] [id number] PCP - General Family Medicine 05/24/24 documented as of this encounter
--- OUTSIDE RECORDS SUMMARY | 2024-10-17 10:37 | XMS_ITS | Clinical Summary ---
Author Organization [address] [facility] Address [address] [place] [address] Phone Care Team Providers Care Alum Operator Name Role Phone Physician, Pcp Unknown Primary Care Provider Charo vailable Allergies Active Allergy Reactions Criticality Noted Date Comments Hydrocodone-Guaifenesin 02/09/2024 VICODIN TUSS Ibuprofen 02/09/2024 Medications oxyCODONE (ROXICODONE) 5 mg immediate release tablet Take one tablet every 6 hours as needed for pain 04/12/2024 Active Social History Tobacco Use Types Packs/Day Years Used Date Smoking Tobacco: Never Assessed Comments Unknown Sex and Gender Information Value Date Recorded Sex Assigned at Not on file Legal Sex Female 4:33 AM EST Gender Identity Not on file Sexual Orientation Not on file Last Filed Vital Signs Vital Sign Reading Time Taken Comments Blood Pressure - - Pulse - - Temperature - - Respiratory Rate - - Oxygen Saturation - - Inhaled Oxygen Concentration - - Weight 53.5 kg (118 lb) 06/25/2024 9:49 AM EST Height 162.6 cm (5' 4.02 ) 06/25/2024 9:49 AM ES T Body Mass Index 20.24 06/25/2024 9:49 AM EST Plan of Treatment Health Maintenance Due Date Last Done Comments Pneumococcal Vaccine: Pediatrics (0 to 5 Years) and At-Risk Patients (6 to 64 Years) (1 of 2 - PCV) 2007 Cervical Cancer Screening: Pap Smear 2009 COVID-19 Vaccine ( season) 2024 Influenza Vaccine (#1) 2024 05/23/2018 Social Influencers of Health Screening 05/01/2024 Depression Screening 10/02/2024 10/03/2023 Cholesterol Screening (Lipid Panel) 09/08/2027 09/08/2022, 09/08/2022 DTaP,Tdap,and Td Vaccines (9 - Td or Tdap) 06/29/2031 06/29/2021, 05/23/2018, 03/31/2000, Additional history exists HIB Vaccines Completed 02/06/1990 IPV Vaccines Completed 11/16/1993, 01/22, 03/18/1989, Additional history exists MMR Vaccines Completed 02/23/2000, 09/08/1989 Hepatitis B Vaccines Completed 08/10/2000, 03/31/2000, 02/23/2000 HIV Screening Completed 10/03/2023 Hepatitis C Screening Completed 10/03/2023, 024 HPV Vaccines Aged Out No longer eligi ble based on patient's age to complete this topic Hepatitis A Vaccines Aged Out No long er eligible based on patient's age to complete this topic Meningococcal ACWY Vaccine Aged Out N o longer eligible based on patient's age to complete this topic Meningococcal B Vacine Aged Out No lo nger eligible based on patient's age to complete this topic RSV Immunization Patients Under 20 months Aged Out No longer eligible based on patient's age to complete this topic Varicella Vaccines Aged Out No longer eligible based on patient's age to complete this topic Procedures Procedure Name Priority Date/Time Associated Diagnosis Comments HEPATITIS C SCREENING Routine 10/03/2023 HIV SCREENING Routine 10/03/2023 LIPID PANEL Routine 09/08/2022 from Last 3 Months or Most Recently Relevant to Health Maintenance Results * HIV Screening (10/03/2023) HIV Screening Abstracted us Historical Provider HEALTH MAINTENANCE Final Result * Hepatitis C Screening (10/03/2023) Hepatitis C Screening Abstracted us Historical Provider HEALTH MAINTENANCE Final Result * Lipid panel (09/08/2022) LDL/HDL Ratio 0 Comment:No interpretation Triglycerides 0 mg/dL Comment:No interpretation Cholesterol 0 mg/dL Comment:No interpretation HDL 0 mg/dL Comment:No interpretation LDL Cholesterol 0 mg/dL Comment:No interpretation Blood Venous blood specimen / Unknown Historical Provider LAB BLOOD ORDERABLES Yvonne l Result from Last 3 Months or Most Recently Relevant to Health Maintenance Insurance MEDICAID - [place] Care Teams Alum Operator Relationship Specialty Start Date End Date Physician, Pcp Unknown PCP - General 06/19/24
--- OUTSIDE RECORDS SUMMARY | 2024-10-17 10:37 | XMS_ITS | Encounter Summary ---
Author Organization [employer] Address [address] [place] [address] 7[address] [place] [address] Care Team Providers Care Fisher Pound Net Or Trap Name Role Phone Alaina Falcon TRUCKER Primary Care Provider [phone] Reason for Referral * Consultation (Routine) - Authorized Specialty Diagnoses / Procedures Referred By Contac t Referred To Contact Pain Medicine Diagnoses Neck pain Angel Gatica MD [address] [place] [address] Phone: tel: fax: [address] Phone: tel: fax: Referral ID Status Reason Start Date Expiration Date Visits Requested Visits Authorized [id number] Authorized Specialty Services Required 10/01/2024 10/01/2025 6 6 * Consultation (Routine) - Closed Specialty Diagnoses / Procedures Referred By Contac t Referred To Contact Orthopaedic Surgery Diagnoses Left wrist pain Angel Gatica MD [address] [place] [address] Phone: tel: fax: [facility] [address] [place], [place] Phone: tel: Referral ID Status Reason Start Date Expiration Date V isits Requested Visits Authorized [id number] Closed Specialty Services Required 10/01/2024 10/01/2025 6 6 Reason for Visit * Reason Comments Arm Pain Shoulder Pain Back Pain Encounter Details Date Type Department Care Team (Late st Contact Info) Description 10/01/2024 9:40 AM EDT Office Visit [facility] [address] [place] [address] Angel Gatica MD [address] [place] [address] Neck pain (Primary Dx); Left wrist pain; Mass of left foot Social History Tobacco Use Types Packs/Day Years [...] AM EDT documented as of this encounter Last Filed Vital Signs Vital Sign Reading [...] 12.8 oz) 10/01/2024 9:14 AM EDT Height - - Body Mass Index 21.25 06/16/2024 10:01 AM EST documented in this encounter Progress Notes * Angel Gatica MD - 10/01/2024 9:40 AM EDT Subjective Patient ID: Jhon Arcos is a 34 y.o. female. HPI Jhon has 2-year history of intermittent pain in the left posterior neck and upper back that radiates down her left upper extremity with occasional numbness. 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 Denies weakness. She is left-handed. Heat pad helps. Also states that she is having carpal tunnel pain in her left wrist that has been worsening for a while . States that she had right carpal tunnel surgery by Dr. Jay which resolved symptoms. Lives with 2 children. LMP=last week. 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 Smokes 1/2 PPD. Declines NRT. Patient Active Problem List Diagnosis Asthma Decreased hearing Insomnia Nicotine dependence Back pain without sciatica Carpal tunnel syndrome Calcium deficiency Acute swimmer's ear of left side Pain in female pelvis ADHD Tobacco use Preop examination Mood disorder (CMS/HCC) The following portions of the chart were reviewed this encounter and updated as appropriate: Tobacco Allergies Meds Problems Med Hx Surg Hx Fam Hx Review of Systems Constitutional: Negative for fever. Respiratory: Negative for shortness of breath. Cardiovascular: Negative for chest pain. Gastrointestinal: Negative for abdominal pain. Musculoskeletal: Positive for arthralgias, back pain and neck pain. Skin: Negative for rash. Neurological: Positive for numbness. Negative for weakness and headaches. Objective Physical Exam Vitals and nursing note reviewed. Constitutional: Appearance: Normal appearance. HENT: Head: Normocephalic and atraumatic. Right Ear: Tympanic membrane, ear canal and external ear normal. Left Ear: Tympanic membrane, ear canal and external ear normal. Nose: Nose normal. Eyes: Conjunctiva/sclera: Conjunctivae normal. Pupils: Pupils are equal, round, and reactive to light. Cardiovascular: Pulses: Radial pulses are 2+ on the left side. Pulmonary: Effort: Pulmonary effort is normal. Musculoskeletal: Comments: Tenderness over left lower posterolateral neck and adjacent left upper back. Full range of motion of the left shoulder, elbow, wrist with pain on range of motion of the wrist. Skin: General: Skin is warm and dry. Neurological: Mental Status: She is alert. Gait: Gait is intact. Psychiatric: Mood and Affect: Mood and affect normal. Behavior: Behavior normal. Procedures Assessment/Plan Diagnoses and all orders for this visit: Neck pain Continue warm compresses as needed. Refilled Tylenol, Flexeril, and lidocaine patches. Given work note to avoid repetitive motions that cause pain. Referred to pain management. Orders: - acetaminophen (Tylenol Extra Strength) 500 MG tablet; Take 1-2 tablets (500- 1,000 mg) by mouth every 8 (eight) hours if needed for moderate pain. - lidocaine (Lidoderm) 5 % patch; Apply 1 patch topically Once per day. Remove & discard patch within 12 hours or as directed by MD. Left wrist pain Left wrist cock-up splint to use at night ordered . Referred to orthopedic surgery for possible carpal tunnel syndrome. Other orders - cyclobenzaprine (Flexeril) 10 MG tablet; Take 1 tablet (10 mg) by mouth if needed in the morning and at bedtime for muscle spasms. - cholecalciferol (Vitamin D-3) 25 MCG (1000 UT) tablet; Take 1 tablet (25 mcg) by mouth Once per day. documented in this encounter Plan of Treatment Scheduled Referrals Name Type Priority Associated Diagnoses Order Schedule Referral to Orthopaedic Surgery Outpatient Referral Routine Left wrist pain Expected: 10/01/2024 (Approximate), Expires: 10/01/2025 Referral to Pain Medicine Outpatient Referral Routine Neck pain Expected: 10/01/2024 (Approximate), Expires: 10/01/2025 documented as of this encounter Visit Diagnoses Diagnosis Neck pain- Primary Cervicalgia Left wrist pain Pain in joint, forearm Mass of left foot documented in this encounter Additional Health Concerns Assessment Noted Time PHQ-9 Depression Total Score: 18 024 10:53 AM EDT documented as of this encounter Care Teams Fisher Pound Net Or Trap Relationship Specialty Start Date End Date Alaina Falcon FNP [address] [place] [address] PCP - General Family Medicine 05/24/24 documented as of this encounter
--- OUTSIDE RECORDS SUMMARY | 2024-10-17 10:37 | XMS_ITS | Encounter Summary ---
Author Organization [employer] Address [address] [facility] 7t [place] [address] Care Team Providers Care Associate Counsel Name Role Phone Alaina Falcon DARIAN Primary Care Provider [phone] Encounter Details Date Type Department Care Team ([facility] st Contact Info) Description 10/05/2024 Population Health Risk Score [facility] () Department [address] [id number] Provider, Population Health Generic Social History Tobacco Use Types Packs/Day Years [...] documented as of this encounter Visit Diagnoses Not on filedocumented in this encounter Additional Health Concerns Assessment Noted Time PHQ-9 Depression Total Score: 18 024 10:53 AM EDT documented as of this encounter Care Teams Associate Counsel Relationship Specialty Start Date End Date Alaina Falcon FNP [address] [place] [address] PCP - General Family Medicine 05/24/24 documented as of this encounter
--- OUTSIDE RECORDS SUMMARY | 2024-10-17 10:37 | XMS_ITS | Encounter Summary ---
Author Organization [facility] Address [address] [place] [address] Phone Care Team Providers Care Silk Spooler Name Role Phone Kylie Mercer MD Primary Care Provider [phone] Encounter Details Date Type Department Care Team (Late st Contact Info) Description 05/26/2017 Conversion Encounter [facility] [address] [place] [address] Social History Tobacco Use Types Packs/Day Years Used Date Smoking Tobacco: Never Assessed Comments Unknown Sex and Gender Information Value Date Recorded Sex Assigned at Not on file Legal Sex Female 4:13 PM EDT Gender Identity Not on file Sexual Orientation Not on file documented as of this encounter Plan of Treatment Not on file documented as of this encounter Visit Diagnoses Not on filedocumented in this encounter Care Teams Silk Spooler Relationship Specialty Start Date End Date Kylie Mercer MD [address] [place] [address] PCP - General 03/04/17 12/29/22 documented as of this encounter
--- OUTSIDE RECORDS SUMMARY | 2024-10-17 10:37 | XMS_ITS | Encounter Summary ---
Author Organization [employer] Address [address] [place] [address] [address] [place] [address] Care Team Providers Care Generating Station Mechanic Name Role Phone Mansi Jett Primary Care Provider [phone] Sabina Rodrigues SHIPWRIGHT Primary Care Provider [phone] Alaina Falcon FREELANCE PATTERNMAKER Primary Care Provider [phone] Reason for Visit * Reason Onset Date Comments Nurse Triage 02/06/2024 Encounter Details Date Type Department Care Team (Late st Contact Info) Description 02/06/2024 Telephone [facility] [address] [place], [place] [phone] Mansi Jett FNP [address], [place] [phone] Nurse Triage Social History Tobacco Use Types Packs/Day Years Used Date Smoking Tobacco: Every Day Cigarettes Smokeless Tobacco: Never Alcohol Use Standard Drinks/Week [...] Recorded Patient Health Questionnaire-2 Score 5 10/03/2023 Comments No Sex and Gender Information Value Date Recorded Sex Assigned at Female 05/24/2022 10:18 AM EDT Legal Sex Female 10:18 AM EDT Gender Identity Female 05/24/2022 10:18 AM EDT Sexual Orientation Straight 05/24/2022 10 :18 AM EDT documented as of this encounter Miscellaneous Notes * Telephone Encounter - Margarita Montanez RN - 02/06/2024 10:35 AM EDT Triage call Pt reports being seen in [facility] this morning. Pt reports receiving a toradol injection but, left due to long waiting time. Pt is calling requesting a note for absence from work. Pt reports pain in left foot so intense Pt unable to stand on foot. Pt is advised referral is in to Dr. Saxena,electronic warfare specialist and Pt is awaiting call for apt with this Doctor. Pt reprots a hot/cold sensation which h as intensified over the weekend. Pt is advised to come to [facility] today open till 8pm for provider to see Pt and to obtain excuse for work. Pt agrees with this disposition and insurnace is verified as active. Request for [facility] report is sent . Protocol Used: Foot Pain (Adult) Protocol-Based Disposition: See in Office or Video Visit Today Positive Triage Question: * Severe pain (e.g., excruciating, unable to do any normal activities) * All higher-acuity triage questions were negative Care Advice Discussed: * Reassurance and Education - Foot Pain * Pain Medicines * Reasons To Call Back - Swelling, redness, or fever occur - Severe pain not relieved by pain medicine - Pain lasts over 7 days - You become worse * Telephone Encounter - Francisco Ke - 02/06/2024 10:09 AM EDT Symptom: Foot or Ankle Pain - Not From Injury Outcome: Schedule an urgent appointment (within 1 hour) or talk to a nurse or provider soon Reason: Severe pain now The caller accepted this outcome Patient was already seen for the Ganglion cyst of left foot and a referral was put in place howeveris in a lot of pain documented in this encounter Plan of Treatment Not on file documented as of this encounter Visit Diagnoses Not on filedocumented in this encounter Additional Health Concerns Assessment Noted Time PHQ-9 Depression Total Score: 18 024 10:53 AM EDT documented as of this encounter Care Teams Generating Station Mechanic Relationship Specialty Start Date End Date Mansi Jett FNP [address] [place] [address] PCP - General Family Medicine 08/16/22 03/27/24 Sabina Rodrigues NP [address] [place] [address] PCP - General Family Medicine 03/28/24 05/23/24 Alaina Falcon FNP [address] [place] [address] PCP - General Family Medicine 05/24/24 documented as of this encounter
--- OUTSIDE RECORDS SUMMARY | 2024-10-17 10:37 | XMS_ITS | Encounter Summary ---
Author Organization [employer] Address [address] [place] [address] 7 [place] [address] Care Team Providers Care Title One Kindergarten Teacher Name Role Phone Alaina Falcon SALES AND MARKETING ENGINEER Primary Care Provider [phone] Reason for Visit * Reason Onset Date Comments Med Refill 09/14/2024 Encounter Details Date Type Department Care Team (Late st Contact Info) Description 09/14/2024 Refill [facility] [address] [place] [address] Name, MD Myles [address] [place] [address] Bacterial vaginosis Social History Tobacco Use Types Packs/Day Years [...] as of this encounter Visit Diagnoses Diagnosis Bacterial vaginosis Unspecified vaginitis and vulvovaginitis documented in this encounter Additional Health Concerns Assessment Noted Time PHQ-9 Depression Total Score: 18 024 10:53 AM EDT documented as of this encounter Care Teams Title One Kindergarten Teacher Relationship Specialty Start Date End Date Alaina Falcon FNP [address] [place] [address] PCP - General Family Medicine 05/24/24 documented as of this encounter
--- OUTSIDE RECORDS SUMMARY | 2024-10-17 10:37 | XMS_ITS | Encounter Summary ---
Author Organization [employer] Address [address] [place] [address] [address] [place] [address] Care Team Providers Care Preparation Supervisor Name Role Phone Mansi Jett Primary Care Provider [phone] Sabina Rodrigues LADLE HANDLER Primary Care Provider [phone] Alaina Falcon PRIMARY CARE COORDINATOR Primary Care Provider [phone] Encounter Details Date Type Department Care Team (Late st Contact Info) Description 09/20/2022 Orders Only [facility] [address] [place] [address] Mansi Jett FNP [address] [place], [place] [phone] Vitamin D deficiency (Primary Dx) Social History Tobacco Use Types Packs/Day Years Used Date Smoking Tobacco: Every Day Cigarettes Smokeless Tobacco: Former Alcohol Use Standard Drinks/Week Comments Not Currently 0 (1 standard drink = 0.6 oz pur e alcohol) Depression Answer Date Recorded Patient Health Questionnaire-9 Score 10 09/08/2022 Depression Answer Date Recorded Patient Health Questionnaire-2 Score 3 09/08/2022 Comments Unknown Sex and Gender Information Value Date Recorded Sex Assigned at Female 05/24/2022 10:18 AM EDT Legal Sex Female 10:18 AM EDT Gender Identity Female 05/24/2022 10:18 AM EDT Sexual Orientation Straight 05/24/2022 10 :18 AM EDT COVID-19 Exposure Response Date Recorded In the last 10 days, have yo u been in contact with someone who was confirmed or suspected to have Coronavirus/COVID-19? No / Unsure 09/08/2022 10:11 AM EST documented as of this encounter Plan of Treatment Not on file documented as of this encounter Visit Diagnoses Diagnosis Vitamin D deficiency- Primary documented in this encounter Additional Health Concerns Assessment Noted Time PHQ-9 Depression Total Score: 10 023 10:29 AM EST documented as of this encounter Care Teams Preparation Supervisor Relationship Specialty Start Date End Date Mansi Jett FNP [address] [place] [address] PCP - General Family Medicine 08/16/22 03/27/24 Sabina Rodrigues NP [address] [place] [address] PCP - General Family Medicine 03/28/24 05/23/24 Alaina Falcon FNP [address] [place] [address] PCP - General Family Medicine 05/24/24 documented as of this encounter
== END 2024-10-17 10:32 | disposition home or self-care (01) ==
LOC: HO.PMC 09:31
PROVIDERS: PCP Emergency Medicine; Referring Provider Emergency Medicine; Visit Provider Registered Nurse Emergency
DX: M25.512 Pain in left shoulder (principal); M54.2 Cervicalgia; R20.2 Paresthesia of skin
CPT/HCPCS: 99204

== ENCOUNTER → 2024-10-17 09:31 | Outpatient (BNVA) | payer MEDICAID, SELFPAY | PROVIDERS: PCP Emergency Medicine; Referring Provider Emergency Medicine; Visit Provider Registered Nurse Emergency | DX: M25.512 Pain in left shoulder (principal); M54.2 Cervicalgia; R20.2 Paresthesia of skin | CPT/HCPCS: 99212 ==

== ENCOUNTER 2024-10-30 09:38 | Outpatient (AMB) | payer MEDICAID, SELFPAY ==
[2024-10-30 10:04] VITALS: BMI 21.3
--- NOTE | 2024-10-30 10:04 | MHC.OFFVIS ---
Vital Signs 10/30/24 10:04 Height 5 ft 4 in Weight 124 lb BMI 21.3 Intake Visit Reasons: OV bilat hand pain Intake Note: Jhon 34 yr old female presents today for bilateral hand pain. States she is having an increase of CTS in her left hand. States CTS comes and goes through out the day, weakness, swelling and pain. There are days where she is not able to make a fist. Patient also states she is having pain in bilateral thumb. States pain is mainly on her wrist below her CMC joint. Pain when gripping, grabbing and pinching. She has a growth on her right hand middle finger MCP that she noticed about 3 months ago. States she is currently not working due to pain. Denies locking of any finger. She is S/P rt hand CTR 05/23/[address] Jay. EMG done only in right hand. Allergies acetaminophen [Vicodin] Allergy (Unknown, Verified 10/30/24 10:10) Unknown hydrocodone [Vicodin] Allergy (Unknown, Verified 10/30/24 10:10) Unknown ibuprofen [IBUPROFEN] Adverse Reaction (Intermediate, Verified 10/30/24 10:10) HEADACHES From VICODIN Allergy (Unknown, Uncoded 10/30/24 10:10) ICTHY Motrin Allergy (Unknown, Uncoded 10/30/24 10:10) Unknown HPI HPI OV bilat hand pain: Details: Jhon is a 34 year old left hand dominant woman who presents with multiple complaints. She complains of numbness & weakness in her left hand. Symptoms intermittent, but daily, worse at night. She is unsure if this is present in her small finger. She follows with Pain Management for Cervicalgia, and they have ordered a left side nerve conduction study, which has not yet been completed. She also complains of a mass on her right middle finger, onset ~3 months ago. She says she has a Hx of a ganglion cyst to her foot, which was removed surgically. 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 She has a Hx of a right carpal tunnel release, DOS: 05/23/23. She had good relief & normal sensation in her right hand following surgery. She says she currently has some weakness in her right hand, which did not improve following surgery, and she says she has some occasional numbness in her right hand with activities. [facility] Medical History Migraines Asthma Surgical History H/O tubal ligation Social History (Updated 10/30/24 @ 10:10 by Nicolasa Perez [facility]) Current occupational status: employed Current occupation: [employer] / rt hand Review of Systems Const All systems reviewed & are unremarkable except as noted in HPI and below Physical Exam Vital Signs: BMI result Body Mass Index 21.3 Const General: no acute distress and alert Orientation/consciousness: patient oriented x3 Neuro General: patient oriented x3 Extrem Other: Evaluation of Bilateral Upper Extremity: The patient is alert, oriented, and in no acute distress Neuro: Median, Ulnar, Radial nerves motor and sensory intact and sensation is normal to the tips of all digits bilaterally No thenar or intrinsic wasting Good APB muscle belly firing and good finger cross Vascular: Cap refill brisk ROM: There is a hard mass, ~3-4mm in diameter, just proximal to the right 3rd metacarpal head, on the radial side, just radial to extensor tendon. It is nontender and non mobile. No overlying skin changes. Psych Appearance: grossly normal Affect: normal affect Attitude: cooperative Assessment & Plan Assessment & Plan (1) Numbness and tingling in left hand: Code(s): R20.0 - Anesthesia of skin; R20.2 - Paresthesia of skin Category: Medical (2) Mass of right hand: Code(s): R22.31 - Localized swelling, mass and lump, right upper limb Category: Medical Plan Assessment & Plan: 1. Left hand numbness Symptoms intermittent, but daily, worse at night She is unsure if this is present in her small finger 2. Right middle finger mass Just proximal to the 3rd metacarpal head ~3-4mm in diameter I educated her about carpal and cubital tunnel syndrome She will follow up after her left NCS is completed for review With X-rays, 3V R hand to further evaluate the right hand mass Her left hand numbness and tingling bothers her more than the right hand mass which is not particularly bothersome 3. History of right carpal tunnel syndrome, S/P release DOS: 05/23/23 With good resolution of her symptoms Scribed for Veda Jay MD by Cl Rivera, medical scientific liaison, on 10/30/24 at 10:25 AM, EST. Coding Level of Care Code Est Pt Level 4 (40109) Diagnoses Numbness and tingling in left hand R20.0; R20.2 Mass of right hand R22.31
--- OUTSIDE RECORDS SUMMARY | 2024-10-30 10:53 | XMS_ITS | Encounter Summary ---
Author Organization [employer] Address [address] [place] [address] [address] [place] [address] Care Team Providers Care Creative Services Specialist Name Role Phone RonaldaminapilarMarionAlaina OIM CONSULTANT Primary Care Provider [phone] Reason for Visit * Reason Onset Date Comments Med Refill 09/14/2024 Encounter Details Date Type Department Care Team (Late st Contact Info) Description 09/14/2024 Refill [facility] [address] [place] [address] Mansi Jett FNP [address] [place] [address] Vitamin deficiency Social History Tobacco Use Types [...] documented as of this encounter Care Teams Creative Services Specialist Relationship Specialty Start Date End Date Alaina Falcon FNP [address] [place] [phone] PCP - General Family Medicine 05/24/24 documented as of this encounter
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
--- OUTSIDE RECORDS SUMMARY | 2024-10-30 10:54 | XMS_ITS | Encounter Summary ---
Author Organization [facility] Address [address] [place] [address] Phone Care Team Providers Care History Instructor Name Role Phone Kylie Mercer MD Primary Care Provider [phone] Encounter Details Date Type Department Care Team (Late st Contact Info) Description 05/26/2017 Conversion Encounter [facility] [address] [place] [address] Social History Tobacco Use Types Packs/Day Years [...] on filedocumented in this encounter Care Teams History Instructor Relationship Specialty Start Date End Date Kylie Mercer MD [address] [place] [address] PCP - General 03/04/17 12/29/22 documented as of this encounter
--- OUTSIDE RECORDS SUMMARY | 2024-10-30 10:54 | XMS_ITS | Encounter Summary ---
Author Organization [employer] Address [address] [place] [address] [address] [place] [address] Care Team Providers Care User Interface Artist Name Role Phone Alaina Falcon NEWCOMER HOSTESS Primary Care Provider [phone] Reason for Visit * Reason Onset Date Comments Med Refill 09/14/2024 Encounter Details Date Type Department Care Team (Late st Contact Info) Description 09/14/2024 Refill [facility] [address] [place] [address] Name, MD Myles [address] [place] [address] Bacterial vaginosis Social History Tobacco Use Types [...] documented as of this encounter Care Teams User Interface Artist Relationship Specialty Start Date End Date Alaina Falcon FNP [address] [place] [address] PCP - General Family Medicine 05/24/24 documented as of this encounter
--- OUTSIDE RECORDS SUMMARY | 2024-10-30 10:54 | XMS_ITS | Clinical Summary ---
Author Organization [facility] Address [address] [place] [address] Phone Care Team Providers Care Senior Librarian Name Role Phone Physician, Pcp Unknown Primary [...] age to complete this topic Meningococcal B Vaccine Aged Out No l onger eligible based on patient's age to complete [...] Final Result * Hepatitis C Screening (10/03/2023) Pathologist [facility] Hepatitis C Screening Abstracted us Historical Provider [...] Maintenance Insurance MEDICAID - [place] Care Teams Senior Librarian Relationship Specialty Start Date End Date Physician, Pcp Unknown PCP - General 06/19/24
--- OUTSIDE RECORDS SUMMARY | 2024-10-30 10:54 | XMS_ITS | Encounter Summary ---
Author Organization [employer] Address [address] [place] [address] 7t [place] [address] Care Team Providers Care Senior Hr Business Partner Name Role Phone Mansi Jett Primary Care Provider [phone] LIGHT SERVICER HELPER Primary Care Provider [phone] Alaina Falcon BASIC SCIENCES DEAN Primary Care Provider [phone] Encounter Details Date Type Department Care Team (Late st Contact Info) Description 09/20/2022 Orders Only [facility] [address] [place] [address] Mansi Jett FNP [address] [place], [place] [phone] Vitamin D deficiency (Primary Dx) Social History [...] documented as of this encounter Care Teams Senior Hr Business Partner Relationship Specialty Start Date End Date Mansi Jett FNP [address] [place] [address] PCP - General Family Medicine 08/16/22 03/27/24 Sabina Rodrigues NP [address] [place] [address] PCP - General Family Medicine 03/28/24 05/23/24 Alaina Falcon FNP [address] [place] [address] PCP - General Family Medicine 05/24/24 documented as of this encounter
--- OUTSIDE RECORDS SUMMARY | 2024-10-30 10:54 | XMS_ITS | Clinical Summary ---
Author Organization [facility] Address [address] [place] [address] Phone Care Team Providers Care Online Merchandiser Name Role Phone Unavailable Primary Care Provider [...]
--- OUTSIDE RECORDS SUMMARY | 2024-10-30 10:54 | XMS_ITS | Encounter Summary ---
Author Organization [employer] Address [address] [place] [address] 7 [place] [address] Care Team Providers Care Eligibility Clerk Name Role Phone Mansi Jett Primary Care Provider [phone] Sabina Rodrigues RN HEMATOLOGY Primary Care Provider [phone] Alaina Falcon COSTING MANAGER Primary Care Provider [phone] Reason for Visit * Reason Onset Date Comments Nurse Triage 02/06/2024 Encounter Details Date Type Department Care Team (Late st Contact Info) Description 02/06/2024 Telephone [facility] [address] [place], [place] [phone] Mansi Jett FNP [address] [place], [place] [phone] Nurse Triage Social History Tobacco Use Types [...] Triage call Pt reports being seen in [facility] this morning. Pt reports receiving a toradol injection but, left due to long waiting time. Pt is calling requesting a note for absence from work. Pt reports pain in left foot so intense Pt unable to stand on foot. Pt is advised referral is in to Dr. Saxena,disk operator and Pt is awaiting call for apt with this Doctor. Pt reprots a hot/cold sensation which h as intensified over the weekend. Pt is advised to come to [facility] today open till 8pm for provider to see Pt and to obtain excuse for work. Pt agrees with this disposition and insurnace is verified as active. Request for [facility] report is sent . Protocol Used: [...] documented as of this encounter Care Teams Eligibility Clerk Relationship Specialty Start Date End Date Mansi Jett FNP [address] [place] [address] PCP - General Family Medicine 08/16/22 03/27/24 Sabina Rodrigues NP [address] [place] [address] PCP - General Family Medicine 03/28/24 05/23/24 Alaina Falcon FNP [address] [place] [address] PCP - General Family Medicine 05/24/24 documented as of this encounter
== END 2024-10-30 10:33 | disposition home or self-care (01) ==
LOC: HO.HOS 09:38
PROVIDERS: PCP Emergency Medicine; Visit Provider Orthopaedic Surgery
DX: R20.0 Anesthesia of skin (principal); R20.2 Paresthesia of skin; R22.31 Localized swelling, mass and lump, right upper limb
CPT/HCPCS: 99213

== ENCOUNTER → 2024-10-30 09:38 | Outpatient (BNVA) | payer MEDICAID, SELFPAY | PROVIDERS: PCP Emergency Medicine; Visit Provider Orthopaedic Surgery | DX: R22.31 Localized swelling, mass and lump, right upper limb (principal); R20.0 Anesthesia of skin; R20.2 Paresthesia of skin | CPT/HCPCS: 99212 ==

== ENCOUNTER 2025-01-01 16:26 | Outpatient (REF) | payer MEDICAID, SELFPAY ==
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
[2025-01-02 03:56] LABS: CT PCR NOT DETECTED (Not Detect.); NG PCR NOT DETECTED (Not Detect.)
[2025-01-02 11:01] LABS: Bacterial Vaginosis PCR NEGATIVE (Negative); Candida Group PCR DETECTED (Not Detect); Candida glab krusei PCR NOT DETECTED (Not Detect); Trichomonas vaginalis PCR NOT DETECTED (Not Detect)
== END 2025-01-01 16:27 | disposition home or self-care (01) ==
LOC: HO.HHCLNP 16:26
PROVIDERS: Visit Provider Nurse Practitioner Family
DX: N89.8 Other specified noninflammatory disorders of vagina (principal)
CPT/HCPCS: 81515; 87491; 87591

== ENCOUNTER 2025-01-02 09:54 | Outpatient (REF) | payer MEDICAID, SELFPAY ==
--- NOTE | 2025-01-02 09:57 | EMG_ITS ---
Chief complaint: Left-sided neck pain, shoulder pain, numbness in left hand Reason for referral: Evaluate for radiculopathy Referred by: Malathi Wilson NP Procedure done: left upper extremity NCS/EMG Precautions and/or limitations: none The limb temperature was monitored continuously and remained between 32-36 degrees C during the performance of the NCS. Nerve Conduction Studies Anti Sensory Summary Table ?Stim Site NR Onset (ms) Norm Onset (ms) Peak (ms) Norm Peak (ms) O-P Amp (?V) Norm O-P Amp Site1 Site2 Delta-0 (ms) Dist (cm) Mike (m/s) Norm Mike (m/s) Left Median Anti Sensory (2nd Digit) Wrist ? 3.2 4.0 <3.6 25.4 >10 Wrist 2nd Digit 3.2 14.0 44 Left Ulnar Anti Sensory (5th Digit) Wrist ? 2.4 3.1 <3.7 33.8 >15.0 Wrist 5th Digit 2.4 14.0 58 Motor Summary Table ?Stim Site NR Onset (ms) Norm Onset (ms) O-P Amp (mV) Norm O-P Amp iAmp (mV) Amp (1st) (%) Site1 Site2 Delta-0 (ms) Dist (cm) Mike (m/s) Norm Mike (m/s) Left Median Motor (Abd Poll Brev) Wrist ? 4.7 <3.9 8.3 >4.5 9.6 100.0 Elbow Wrist 4.2 21.0 50 >45 Elbow ? 8.9 7.3 8.4 88.0 Left Ulnar Motor (Abd Dig Minimi) Wrist ? 2.7 <3.0 5.1 >5 6.7 100.0 B Elbow Wrist 3.5 18.5 53 >45 B Elbow ? 6.2 4.7 6.3 92.2 A Elbow B Elbow 1.4 10.0 71 >45 A Elbow ? 7.6 4.5 6.2 88.2 Comparison Summary Table ?Stim Site NR Peak (ms) Norm Peak (ms) P-T Amp (?V) Site1 Site2 Delta-P (ms) Norm Delta (ms) Left Median/Radial Dig I Comparison (Digit 1 - 10cm) Median ? 3.9 <2.9 45.0 Median Radial 1.2 Radial ? 2.7 <2.8 16.1 EMG ?Side Muscle Nerve Root Ins Act Fibs Psw Amp Dur Poly Recrt Int Pat Comment Left 1stDorInt Ulnar C8-T1 Nml Nml Nml Nml Nml 0 Nml Complete Left FlexCarRad Median C6-7 Nml Nml Nml Nml Nml 0 Nml Complete Left Biceps Musculocut C5-6 Nml Nml Nml Nml Nml 0 Nml Complete Left Triceps Radial C6-7-8 Nml Nml Nml Nml Nml 0 Nml Complete Left Deltoid Axillary C5-6 Nml Nml Nml Nml Nml 0 Nml Complete Paraspinal EMG ?Side Muscle Nerve Root Ins Act Fibs Psw Comment Left Cervical Upper Rami Nml Nml Nml Left Cervical Mid Rami Nml Nml Nml Left Cervical Lower Rami Nml Nml Nml FINDINGS: Left median motor nerve showed prolonged distal latency but normal ampitude and conduction velocity. Left median sensory nerve showed prolonged peak latencies. Significant interlatency difference between left median and radial sensory nerves. All other nerves tested were within normal. Concentric needle EMG was performed in selected muscles of the left upper extremity and cervical paraspinals. Study did not reveal signs of electric abnormalities as shown in the table above. IMPRESSION: 1. This is an abnormal study. 2. There is electrodiagnostic evidence for left moderate-severe median neuropathy at the wrist, consistent with carpal tunnel syndrome. 3. There is no electrodiagnostic evidence for ulnar neuropathy, brachial plexopathy, or cervical radiculopathy. Thank you for your kind referral. Cony Gee MD, ISAEL Board Certified, [place] Board of Physical Medicine and Rehabilitation (ABPMR) Board Certified, [place] Board of Electrodiagnostic Medicine (ABEM) CODIN [id number] [facility]
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
== END 2025-01-02 09:55 | disposition home or self-care (01) ==
LOC: HO.NEURO 09:54
PROVIDERS: PCP Emergency Medicine; Visit Provider Registered Nurse Emergency
DX: R20.2 Paresthesia of skin (principal)
CPT/HCPCS: 95886; 95909

== ENCOUNTER → 2025-01-02 09:57 | Outpatient (BNV) | payer MEDICAID, SELFPAY | PROVIDERS: PCP Emergency Medicine; Visit Provider Physical Medicine & Rehabilitation | DX: G56.82 Other specified mononeuropathies of left upper limb (principal); M54.2 Cervicalgia; M25.512 Pain in left shoulder; R20.0 Anesthesia of skin; R20.2 Paresthesia of skin | CPT/HCPCS: 95886; 95909 ==

== ENCOUNTER 2025-01-09 14:12 | Outpatient (AMB) | payer MEDICAID, SELFPAY ==
--- NOTE | 2025-01-09 14:14 | A.OFFVIS_ITS ---
Vital Signs 01/09/25 14:15 Height 5 ft 4 in Weight 124 lb BMI 21.3 Handedness Left Intake Visit Reasons: OV: Left hand EMG/NCS review Intake Note: Jhon is a 34 year old left hand dominant female who presents today for an EMG review of her left hand. EMG/NCS done on 01/02/25 IMPRESSION: 1. This is an abnormal study. 2. There is electrodiagnostic evidence for left moderate-severe median neuropathy at the wrist, consistent with carpal tunnel syndrome. 3. There is no electrodiagnostic evidence for ulnar neuropathy, brachial ple xopathy, or cervical radiculopathy. Allergies acetaminophen (Vicodin) Allergy (Unknown, Verified 01/09/25 14:15) Unknown hydrocodone (Vicodin) Allergy (Unknown, Verified 01/09/25 14:15) Unknown ibuprofen (IBUPROFEN) Adverse Reaction (Intermediate, Verified 01/09/25 14:15) HEADACHES From VICODIN Allergy (Unknown, Uncoded 01/09/25 14:15) ICTHY Motrin Allergy (Unknown, Uncoded 01/09/25 14:15) Unknown HPI HPI OV: Left hand EMG/NCS review: Details: Jhon is a 34 year old left hand dominant female who presents today for an EMG review of her left hand. Hole in the office today, patient expresses that her main concern is pain and locking and catching of the right thumb, as well as dorsal hand mass of the right hand. Patient reports daily locking and catching of the right thumb in a flexed position, and has to manually release the thumb most mornings. Patient states she has known she has had carpal tunnel in the left hand for years now, but states that she is not worried about this as her right hand is bothering her far more. Of note, the patient does get very angry over the course of her intake, but does grown much more calm over the course of her EMG review with me. It patient states that she could not work due to the pain she is having in her right hand, and did eventually lose her job due to this. No other acute complaints or concerns at this time. EMG/NCS done on 01/02/25 IMPRESSION: 1. This is an abnormal study. 2. There is electrodiagnostic evidence for left moderate-severe median neuropathy at the wrist, consistent with carpal tunnel syndrome. 3. There is no electrodiagnostic evidence for ulnar neuropathy, brachial plexopathy, or cervical radiculopath [facility] Medical History Migraines Asthma Surgical History H/O tubal ligation Social History Current occupational status: employed Current occupation: [employer] / rt hand Review of Systems Const All systems reviewed & are unremarkable except as noted in HPI and below Physical Exam Vital Signs: BMI result Body Mass Index 21.3 Extrem Other: Patient is alert, oriented, and in no acute distress. Neuro: Normal sensation of the tips of all digits of the right hand at this time Vascular: Cap refill brisk Pain: Tenderness to palpation of the A1 erika of the R thumb Significant pain in the right thumb with all ROM No tenderness to palpation of dorsal R hand mass ROM: No visible or palpable locking and catching of the R thumb in the office today Full active ROM of the R hand, with pain in R thumb Skin: No lacerations or abrasions. General: Approximately 0.25 cm in diameter cystic mass noted on the dorsal R hand at the level of the 3rd MCP joint No ecchymosis, erythema, or evidence of infection. Psych: Appears grossly normal Affect normal Attitude cooperative Assessment & Plan Assessment & Plan (1) Mass of right hand: Code(s): R22.31 - Localized swelling, mass and lump, right upper limb Category: Medical (2) Trigger thumb, right thumb: Code(s): M65.311 - Trigger thumb, right thumb Category: Medical Plan 1. Dorsal hand mass 2. R trigger thumb I educated the patient about the condition. I discussed both operative and nonoperative treatment options. The patient would like to proceed with surgery. The risks and benefits of operative treatment were discussed with the patient and the patient wishes to proceed with surgery. These risks include, but are not limited to, risk of damage to blood vessels, nerves, tendons, infection, recurrence, incomplete relief of preoperative symptoms, persistent pain, possible need for further surgery, and the risks associated with regional blocks and/or anesthesia. Plan is to take the patient to the operating room at some point in the next few weeks for the following procedures: 1. Right Dorsal hand mass excision under general 2. Right trigger thumb release under general All of the preoperative paperwork including the consent was discussed today. All of the patient's questions were answered in the clinic today. The patient understands that they will be in contact with our surgical dental assistant to discuss scheduling their procedure. Patient denies diabetes, blood thinners, asthma, heart issues, lung issues, kidney issues, or current smoking. Coding Level of Care Code Est Pt Level 4 (60239) Diagnoses Mass of right hand R22.31 Trigger thumb, right thumb M65.311
[2025-01-09 14:15] VITALS: BMI 21.3
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
== END 2025-01-09 15:02 | disposition home or self-care (01) ==
LOC: HO.HOS 14:13
PROVIDERS: PCP Emergency Medicine
DX: R22.31 Localized swelling, mass and lump, right upper limb (principal); M65.311 Trigger thumb, right thumb
CPT/HCPCS: 99214

== ENCOUNTER → 2025-01-09 14:12 | Outpatient (BNVA) | payer MEDICAID, SELFPAY | PROVIDERS: PCP Emergency Medicine | DX: R22.31 Localized swelling, mass and lump, right upper limb (principal); M65.311 Trigger thumb, right thumb | CPT/HCPCS: 99212 ==

== ENCOUNTER 2025-02-11 10:18 | Day surgery (SDC) | payer MEDICAID, SELFPAY ==
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
--- OUTSIDE RECORDS SUMMARY | 2025-01-22 13:41 | XMS_ITS | Clinical Summary ---
Author Organization [address] [facility] Address [address] [place] [address] Phone Care Team Providers Care Industrial Twisting Machine Operator Name Role Phone Physician, Pcp Unknown [...] Smear 2009 COVID-19 Vaccine ( season) 2024 Social Influencers of Health Screening 05/01/2024 Depression Screening 10/02/2024 10/03/2023 Influenza Vaccine (Season Ended) 2025 05/23/2018 Cholesterol Screening (Lipid Panel) 09/08/2027 09/08/2022, 09/08/2022 [...] Result * Hepatitis C Screening (10/03/2023) Pathologist [facility] Hepatitis C Screening Abstracted us Historical Provider [...] Maintenance Insurance MEDICAID - [place] Care Teams Industrial Twisting Machine Operator Relationship Specialty Start Date End Date Physician, Pcp Unknown PCP - General 06/19/24
[2025-02-07 13:19] VITALS: BMI 21.3
--- NOTE | 2025-02-07 14:06 | HO.ANESPROP2 ---
Documented by User: Sumaya Martin NP 02/07/25 14:07 HPI - Anesthesia Eval Consult details Narrative: 34yo F for Right Thumb Trigger Release, Dorsal Hand Excision Mass PMFSH Active Problems Active Problems: All Active Problems Trigger thumb, right thumb (Acute) Mass of right hand (Acute) Numbness and tingling in left hand (Acute) Arm paresthesia, left (Acute) Myofascial neck pain (Acute) Left shoulder pain (Acute) Carpal tunnel syndrome of right wrist (Acute) Past Medical History Medical History Migraines Asthma Surgical History Surgical History H/O tubal ligation Social History Social History Patient Tobacco Use Status: Current someday Tobacco user Have you been hit, kicked, punched, or otherwise hurt by someone within the past year? 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 Meds Allergies Allergy/AdvReac Type Severity Reaction Status Date / Time hydrocodone (Vicodin) Allergy Unknown Unknown Verified 01/09/25 14:15 ibuprofen (IBUPROFEN) AdvReac Intermediate HEADACHES Verified 01/09/25 14:15 From VICODIN Allergy Unknown ICTHY Uncoded 01/09/25 14:15 Motrin Allergy Unknown Unknown Uncoded 01/09/25 14:15 Home Medications ?Medication ?Instructions ?Recorded ?Confirmed ?Last Taken ?Type multivitamin with folic acid 400 1 tab PO DAILY 04/12/23 10/17/24 Unknown History mcg tablet (Daily-Michael (with folic acid)) cyclobenzaprine 10 mg tablet 10 mg PO BID PRN muscle spasm 10/30/24 Unknown History Exam Height,Weight and Vital Signs: Height 5 ft 4 in Weight 56.245 kg Assessment and Plan Assessment Anesthesia Assessment: Chart Reviewed Documented by User: Darrius Marquez MD 02/11/25 11:43 PMFSH Past Medical History Medical History Migraines Asthma Functional capacity: independent ambulation Family History Family history of problems with anesthesia: No Surgical History Surgical History H/O tubal ligation History of Problems with Anesthesia: No Social History Social History Patient Tobacco Use Status: Current someday Tobacco user Have you been hit, kicked, punched, or otherwise hurt by someone within the past year? 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 Meds Allergies Allergy/AdvReac Type Severity Reaction Status Date / Time hydrocodone (Vicodin) Allergy Unknown Unknown Verified 01/09/25 14:15 ibuprofen (IBUPROFEN) AdvReac Intermediate HEADACHES Verified 01/09/25 14:15 From VICODIN Allergy Unknown ICTHY Uncoded 01/09/25 14:15 Motrin Allergy Unknown Unknown Uncoded 01/09/25 14:15 Home Medications ?Medication ?Instructions ?Recorded ?Confirmed ?Last Taken ?Type multivitamin with folic acid 400 1 tab PO DAILY 04/12/23 10/17/24 Unknown History mcg tablet (Daily-Michael (with folic acid)) cyclobenzaprine 10 mg tablet 10 mg PO BID PRN muscle spasm 10/30/24 Unknown History Exam Airway Mallampati Class: II TM Dist: >3cm Neck ROM: Full Loose/Missing/Broken Teeth: No Heart: RRR Lungs: CTA Assessment and Plan Assessment Anesthesia Assessment: Anesthesia Plan Discussed Final Anesthetic Review Family History of Problems with Anesthesia: No History of Problems with Anesthesia: No NPO: Yes ASA Class: II Patient Risk: Low Procedure Risk: Low Anesthetic Plan Anesthetic Plan: GA
--- NOTE | 2025-02-11 10:24 | MHC.SHP ---
Pre-Procedural Eval Section A - 24 Hr Update-Section A only Date of Service: 02/11/25 The patient is an INPATIENT: No Changes since office visit: No Cold of Flu in the past 2 weeks, No New Medical Problems, No Changes in Medication and No Patient answered all questions The patient has been examined within 24 hours of the surgical procedure. The History & Physical has been completed within 30 days and I have reviewed it.: Yes Section B - Complete if H&P > 30 days Chief Complaint: Localized swelling, mass and lump, right upper aranda Allergies: Allergies Allergy/AdvReac Type Severity Reaction Status Date / Time hydrocodone (Vicodin) Allergy Unknown Unknown Verified 01/09/25 14:15 ibuprofen (IBUPROFEN) AdvReac Intermediate HEADACHES Verified 01/09/25 14:15 From VICODIN Allergy Unknown ICTHY Uncoded 01/09/25 14:15 Motrin Allergy Unknown Unknown Uncoded 01/09/25 14:15 Plan I have reviewed the history and physical and performed a pertinent physical examination on my patient. No changes have occurred unless specified. Time Spent With Patient Time: Total time managing care of this patient today ____ minutes.
--- NOTE | 2025-02-11 10:26 | W.PM.OPN ---
Operative Note Operative Note Date of Service: 02/11/25 Narrative: Operative Note Narrative: Preop diagnosis: 1. Right dorsal hand mass 2. Right trigger thumb Postop diagnosis: Same Procedure: 1. Right dorsal hand mass excision 2. Right trigger thumb release Surgeon: Veda Jay MD Unclaimed Property Manager: None Anesthesia: General Anesthesia Findings: No locking or catching after A1 erika release. Soft tissue mass most consistent with a ganglion cyst attached to the EDC tendon to the middle finger measuring approximately 6 mm in diameter 4 it was removed removed from dorsal aspect of right hand just radial to the 3rd metacarpal head Implants: None Tourniquet time: 7 minutes EBL: 5.0 ml Specimen: Right dorsal hand mass sent for histopathology Drains: None Complications: None Disposition: Brought to the recovery room in stable condition Plan: Follow-up in 10-14 days for wound check, suture removal and to check pathology Indications: The patient is a 34 year old woman with a right trigger thumb and a right dorsal hand mass. The patient wanted to be put to sleep for these procedures. . The risks and benefits of operative treatment, including but not limited to risk of damage to blood vessels, nerves, tendons, infection, recurrence, persistent pain or numbness, incomplete resolution of preoperative symptoms, or need for further surgery were discussed with the patient and they wished to proceed with surgery. Procedure: Once consent was obtained patient was brought back to the operating suite and placed in the operating table in a supine position. . Perioperative antibiotics and anesthesia was administered by the anesthesia team. A tourniquet was applied to the proximal aspect of the right upper extremity and the limb was prepped and draped in a standard surgical fashion. The limb was elevated exsanguinated with Esmarch bandage and the tourniquet inflated to 250 mm of mercury for a total tourniquet time of 7 minutes. Once assured that we had a good block, a 1.5 cm oblique incision was made centered over the A1 erika of the right thumb . The incision was made through the skin to the subcutaneous tissues using a #15 blade. Careful dissection was made down to the level of the A1 erika using tenotomy scissors, with care being taken to protect the nearby neurovascular structures. A longitudinal incision was made in the A1 erika 1st using a #15 blade, then using tenotomy scissors under direct visualization. The A1 erika was noted to be thickened. Following our A1 erika release, we no longer saw any locking or catching of the digit with flexion and extension. I then turned my attention to the soft tissue mass just radial to the dorsal aspect of the 3rd metacarpal head. I made a 1.5 cm longitudinal incision directly over the mass. The incision was made through the skin to the subcutaneous tissues using a 15. Blade. I then carefully dissected down to the level of the mass using tenotomy and iris scissors. The mass was about 6 mm in diameter, spherical and filled with clear viscous fluid consistent with a ganglion.. The mass was then dissected free and placed on the back table to be sent for histopathology. No further masses were identified. At this point the tourniquet was deflated and hemostasis obtained with a brief period of local pressure and bipolar electrocautery. The wounds were copiously irrigated with normal saline. The skin edges were reapproximated with 5-0 nylon suture. The wounds were infiltrated with some 1% lidocaine with epinephrine for postop pain control and a sterile dressing was applied. The patient appears to have tolerated the procedure well and with no complications. All digits were well vascularized conclusion of the case.
[2025-02-11 10:32] VITALS: BP 95/59; PULSE 56; RESP 19; TEMP 36.9; O2SAT 98; BMI 20.9
[2025-02-11] MEDS: Lactated Ringers 1,000 ML 100 ML IVCONT (10:50)
--- NOTE | 2025-02-11 11:39 | HO.ANESPROP2 ---
[facility] Active Problems Active Problems: All Active Problems (Updated 01/09/25 @ 18:35 by BRENT Jimenez) Trigger thumb, right thumb (Acute) Mass of right hand (Acute) Numbness and tingling in left hand (Acute) Arm paresthesia, left (Acute) Myofascial neck pain (Acute) Left shoulder pain (Acute) Carpal tunnel syndrome of right wrist (Acute) Past Medical History Medical History Migraines Asthma Surgical History Surgical History H/O tubal ligation Social History Social History Patient Tobacco Use Status: Current someday Tobacco user Have you been hit, kicked, punched, or otherwise hurt by someone within the past year? 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 Meds Allergies Allergy/AdvReac Type Severity Reaction Status Date / Time hydrocodone (Vicodin) Allergy Unknown Unknown Verified 01/09/25 14:15 ibuprofen (IBUPROFEN) AdvReac Intermediate HEADACHES Verified 01/09/25 14:15 From VICODIN Allergy Unknown ICTHY Uncoded 01/09/25 14:15 Motrin Allergy Unknown Unknown Uncoded 01/09/25 14:15 Active Medications: Current Medications Albuterol Sulfate (Albuterol Sulfate (0.083%) 2.5 Mg/3 Ml Vial.Neb) 2.5 mg INHALE ONCE PRN PRN Reason: Shortness of Breath/Wheezing Lactated Ringer's (Lr) 1,000 mls @ 100 mls/hr IVCONT .Q10H GILMAR Last Admin: 02/11/25 10:50 Dose: 100 mls/hr Home Medications ?Medication ?Instructions ?Recorded ?Confirmed ?Last Taken ?Type multivitamin with folic acid 400 1 tab PO DAILY 04/12/23 10/17/24 Unknown History mcg tablet (Daily-Michael (with folic acid)) cyclobenzaprine 10 mg tablet 10 mg PO BID PRN muscle spasm 10/30/24 Unknown History Exam Height,Weight and Vital Signs: Height 5 ft 4 in Weight 121 lb 14.65 oz Last Vital Signs Temp 98.5 F 02/11/25 10:32 Pulse 56 02/11/25 10:32 Resp 19 02/11/25 10:32 BP 95/59 L 02/11/25 10:32 Pulse Ox 98 02/11/25 10:32 O2 Del Method Room Air 02/11/25 10:32 Assessment and Plan Assessment Anesthesia Assessment: Anesthesia Plan Discussed, Smoking Cess. Discussed and Chart Reviewed Final Anesthetic Review Final Preanesthetic Review: No Changes in Pt Med Stat, Meds/Allgs Chart Reviewed, Consent Obtained/Reviewed and Anes Risks/Benef Reviewed Patient Risk: Low Procedure Risk: Low Anesthetic Plan Anesthetic Plan: GA Disposition: Standard PACU
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
[2025-02-11 15:03] VITALS: BP 100/54; PULSE 64; RESP 16; TEMP 36.8; O2SAT 99
[2025-02-11 15:08] VITALS: BP 104/82; PULSE 52; RESP 16; O2SAT 98
[2025-02-11 15:13] VITALS: BP 113/52; PULSE 54; RESP 18; O2SAT 98
[2025-02-11 15:18] VITALS: BP 104/59; PULSE 52; RESP 18; TEMP 36.8; O2SAT 98
== END 2025-02-11 15:50 | disposition home or self-care (01) ==
PROVIDERS: PCP Nurse Practitioner Family; Visit Provider Orthopaedic Surgery
PROC: (CPT 26055; principal; 2025-02-11 12:00)
PROC: (CPT 26160; 2025-02-11 12:00)
DX: M67.441 Ganglion, right hand (principal); M65.311 Trigger thumb, right thumb; G43.909 Migraine, unspecified, not intractable, without status migrainosus; J45.909 Unspecified asthma, uncomplicated; Z79.899 Other long term (current) drug therapy; Z88.6 Allergy status to analgesic agent; Z88.8 Allergy status to other drugs, medicaments and biological substances; Z88.5 Allergy status to narcotic agent; Z98.51 Tubal ligation status
CPT/HCPCS: 26160; 26055; 88304; J0131; J0690; J1100; J2003; J2004; J2405; J2704; J3010

== ENCOUNTER → 2025-02-11 10:18 | Outpatient (BNV) | payer MEDICAID, SELFPAY | PROVIDERS: PCP Nurse Practitioner Family; Visit Provider Orthopaedic Surgery | DX: M65.311 Trigger thumb, right thumb (principal); M67.441 Ganglion, right hand | CPT/HCPCS: 26055; 26115 ==

== ENCOUNTER 2025-02-26 09:00 | Outpatient (AMB) | payer MEDICAID, SELFPAY ==
--- NOTE | 2025-02-26 09:04 | MHC.OFFVIS ---
Vital Signs 02/26/25 09:16 Height 5 ft 4 in Weight 124 lb BMI 21.3 Intake Visit Reasons: PO-Rt Thumb Trigger, Rt Dorsal hand mass exc 02/11 Intake Note: Jhon is a 34 year old left hand dominant female who presents today for their first post-operative visit status post right dorsal hand mass excision & right trigger thumb release, DOS: 02/11/[address] Jay. Patient reports her right thumb is very tender and painful. She is unable to bend it. She states there is another mass that was bothering her but exploded and now is bothering her again. She wants to know how she can get rid of that specific pain. She denies numbness, tingling, finger locking. She is no longer taking pain medications. Sutures removed and steri strips applied. Allergies hydrocodone (Vicodin) Allergy (Unknown, Verified 02/26/25 09:16) Unknown ibuprofen (IBUPROFEN) Adverse Reaction (Intermediate, Verified 02/26/25 09:16) HEADACHES From VICODIN Allergy (Unknown, Uncoded 02/26/25 09:16) ICTHY Motrin Allergy (Unknown, Uncoded 02/26/25 09:16) Unknown HPI HPI PO-Rt Thumb Trigger, Rt Dorsal hand mass exc 02/11: Details: Jhon is a 34 year old left hand dominant female who presents today for their first post-operative visit status post right dorsal hand mass excision & right trigger thumb release, DOS: 02/11/[address] Jay. Patient reports her right thumb is very tender and painful. She is unable to bend it fully. She states there is another mass that was bothering her but exploded and now is bothering her again. She wants to know how she can get rid of that specific pain. Of note, the patient states that this cyst has ruptured twice just before she came to see us in our office, therefore it is much harder to evaluate She denies numbness, tingling, finger locking. She is no longer taking pain medications. Sutures removed and steri strips applied. [facility] Medical History Migraines Asthma Surgical History H/O tubal ligation Social History Patient Tobacco Use Status: Current someday Tobacco user Current occupational status: employed Current occupation: [employer] / rt hand Review of Systems Const All systems reviewed & are unremarkable except as noted in HPI and below Physical Exam Vital Signs: BMI result Body Mass Index 21.3 Extrem Other: Patient is alert, oriented, and in no acute distress. Neuro: Normal sensation of the tips of all digits of the right hand at this time Vascular: Cap refill brisk Pain: No tenderness to palpation about the incision sites on A1 erika of right middle finger or dorsal MCP joint of right middle finger Some discomfort with range of motion of the right thumb ROM: Patient is able to make a closed fist and extend all digits of the right hand fully Skin: Well approximated and well healing incision sites noted over the A1 erika of the right thumb and the dorsal MCP joint of the right middle finger No lacerations or abrasions. General: Of note, no distinct mass is able to be palpated in the 1st webspace where the patient states she feels she has a cyst Patient states that this cyst is recurrent, and ruptures No ecchymosis, erythema, or evidence of infection. Psych: Appears grossly normal Affect normal Attitude cooperative Results Reviewed Results Reviewed: X-rays obtained in the office today and independently reviewed by me, Alin Hutchins PA-C, demonstrate no fracture or acute bony abnormality of the right hand. Assessment & Plan Assessment & Plan (1) Mass of right hand: Code(s): R22.31 - Localized swelling, mass and lump, right upper limb Category: Medical (2) Trigger thumb, right thumb: Code(s): M65.311 - Trigger thumb, right thumb Category: Medical Plan 1. Status post right trigger thumb release 2. 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 Mass and pain of 1st webspace of right hand No palpable mass notedIn the office, nothing on x-rays Patient will follow-up with Dr. Jay for assessment of her right hand pain and possible mass in 3-4 weeks Patient expresses she would like to be held out of work until she is able to follow-up with Dr. Jay It is explained to the patient that there is no acute indication for her to be held out of work beyond a further 2 weeks for postop recovery Patient provided with a note that she may return to work as tolerated in 2 weeks Of note, patient expresses frustration with this Follow-up in 3-[address] Jay for assessment of right hand pain and mass, sooner with any acute concerns Orders: Orders XR hand RT min 3V Today M79.641 - Pain in right hand Coding Level of Care Code Global (29350) Diagnoses Mass of right hand R22.31 Trigger thumb, right thumb M65.311
[2025-02-26 09:16] VITALS: BMI 21.3
--- OUTSIDE RECORDS SUMMARY | 2025-02-26 09:18 | XMS_ITS | Encounter Summary ---
Author Organization [facility] Address [address] [place] [address] Phone Care Team Providers Care Negative Cleaner Name Role Phone Kylie Mercer MD Primary Care Provider [phone] Encounter Details Date Type Department Care Team (Late st Contact Info) Description 05/26/2017 Conversion Encounter [facility] [place] [address] [place] [address] Social History Tobacco Use Types Packs/Day Years [...] on filedocumented in this encounter Care Teams Negative Cleaner Relationship Specialty Start Date End Date Kylie Mercer MD [address] [place] [address] PCP - General 03/04/17 12/29/22 documented as of this encounter
--- OUTSIDE RECORDS SUMMARY | 2025-02-26 09:18 | XMS_ITS | Clinical Summary ---
Author Organization [facility] Address [address] [place] [address] Phone Care Team Providers Care Lump Roller Name Role Phone Physician, Pcp Unknown Primary [...] 5 Years) and At-Risk Patients (6 to 49 Years) (1 of 2 - PCV) 2007 Cervical Cancer Screening: Pap Smear 2009 COVID-19 Vaccine ( season) 2024 Social Influencers of Health Screening 05/01/2024 Depression Screening 07/25/2024 Influenza Vaccine (#1) 2025 05/23/2018 Cholesterol Screening (Lipid Panel) 09/08/2027 [...] * HIV Screening (10/03/2023) HIV Screening Abstracted Historical Provider HEALTH MAINTENANCE Final Result * [...] Maintenance Insurance MEDICAID - [place] Care Teams Lump Roller Relationship Specialty Start Date End Date Physician, Pcp Unknown PCP - General 06/19/24
== END 2025-02-26 09:50 | disposition home or self-care (01) ==
LOC: HO.HOS 09:01
PROVIDERS: PCP Emergency Medicine
DX: R22.31 Localized swelling, mass and lump, right upper limb (principal); M65.311 Trigger thumb, right thumb
CPT/HCPCS: 99024

== ENCOUNTER 2025-02-26 09:00 | Outpatient (REF) | payer MEDICAID, SELFPAY ==
--- NOTE | ~2025-02-26 | XR_ITS ---
EXAMINATION: XR HAND 3 OR MORE VIEWS RIGHT HISTORY: M79.641 - Pain in right hand COMPARISON: Comparison is made with the prior examination dated 06/21/2019. FINDINGS: Four views of the right hand are submitted. Osseous mineralization is normal. There is no fracture or dislocation. The joint spaces are preserved. Again seen is a probable small erosion involving the radial aspect of the base of the proximal phalanx of the index finger. The soft tissues are unremarkable. XR/XR hand RT min 3V IMPRESSION: No acute abnormality is identified. No evidence of fracture of the right hand. Electronically signed by: Saran Prakash MD 02/26/2025 09:50 AM EDT
== END 2025-02-26 09:01 | disposition home or self-care (01) ==
LOC: HO.HOSX 09:00
PROVIDERS: PCP Emergency Medicine
DX: M65.311 Trigger thumb, right thumb (principal); M79.641 Pain in right hand; R22.31 Localized swelling, mass and lump, right upper limb
CPT/HCPCS: 73130; 99212

== ENCOUNTER → 2025-02-26 09:30 | Outpatient (BNV) | payer MEDICAID, SELFPAY | PROVIDERS: PCP Emergency Medicine; Visit Provider Radiology Diagnostic Radiology | DX: M79.641 Pain in right hand (principal) | CPT/HCPCS: 73130 ==

== ENCOUNTER 2025-03-20 09:40 | Outpatient (AMB) | payer MEDICAID, SELFPAY ==
--- NOTE | 2025-03-20 09:49 | MHC.OFFVIS ---
Vital Signs 03/20/25 09:55 Height 5 ft 4 in Weight 124 lb BMI 21.3 Intake Visit Reasons: PO: Rt Dorsal hand mass exc 02/11 Intake Note: Jhon 34 yr old right hand dominant female presents today for her P/O visit for her right trigger thumb release & right middle finger MCP joint ganglion cyst excision DOS 02/11/2025. States her thumb continues to lock, and she feels like she has another cyst that had ruptured in the past is is now growing. States she has no pain just discomfort and sensitivity by sonia thumb incision. Allergies hydrocodone (Vicodin) Allergy (Unknown, Verified 03/20/25 09:54) Unknown ibuprofen (IBUPROFEN) Adverse Reaction (Intermediate, Verified 03/20/25 09:54) HEADACHES From VICODIN Allergy (Unknown, Uncoded 03/20/25 09:54) ICTHY Motrin Allergy (Unknown, Uncoded 03/20/25 09:54) Unknown HPI HPI PO: Rt Dorsal hand mass exc 02/11: Details: Jhon is a 34 year old left hand dominant woman who returns with complaints of right hand pain. She is S/P right dorsal middle finger ganglion excision & right trigger thumb release, DOS: 02/11/25 She complains of sensitivity about her thumb incision, and says she continues to have a clicking & catching sensation in her thumb. She says BR[facility] Ogden referred her to OT hand therapy but she has had difficulties making an appointment with them, saying their office did not receive the referral. She is interested in OT. She has left carpal tunnel syndrome. Symptoms intermittent, but daily, primarily at night. She doesn't want to discuss treatment for her left hand while her right hand is still in pain. 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 She says she wants to go back to work but is scared that her hand will start swelling again. She says her job requires lifting up to 50lbs and is concerned about being able to perform her duties, but she wants to go back to work. She has a Hx of a right carpal tunnel release, DOS: 05/23/23. She had good relief & normal sensation in her right hand following surgery. She says she currently has some weakness in her right hand, which did not improve following surgery, and she says she has some occasional numbness in her right hand with activities. PFSH Medical History Migraines Asthma Surgical History H/O tubal ligation Social History Patient Tobacco Use Status: Current someday Tobacco user Current occupational status: employed Current occupation: [employer] / rt hand Review of Systems Const All systems reviewed & are unremarkable except as noted in HPI and below Physical Exam Vital Signs: BMI result Body Mass Index 21.3 Const General: no acute distress and alert Orientation/consciousness: patient oriented x3 Neuro General: patient oriented x3 Extrem Other: Evaluation of Right Upper Extremity: The patient is alert, oriented, and in no acute distress Neuro: Median, Ulnar, Radial nerves motor and sensory intact and sensation is normal to the tips of all digits Vascular: Cap refill brisk ROM: She can make a fist and extend all her digits She can oppose her thumb to all digits and the base of her small finger No locking or catching No palpable mass passing beneath the thumb a1 erika Some mild hypersensitivity over the incision site Trigger thumb scar well-healed Patient complains of occasional pain & clicking in the thumb IP joint. Again not seen today in clinic Patient reports a Hx of a cyst over the dorsal aspect of the 2nd CMC joint. No mass seen today Pathology report: 02/11/25 Diagnosis Soft tissue, right hand cyst, excision: Fibrovascular tissue with myxoid and cystic degeneration, consistent with ganglion cyst Nerve Conduction Study: Left-side only IMPRESSION: 1. This is an abnormal study. 2. There is electrodiagnostic evidence for left moderate-severe median neuropathy at the wrist, consistent with carpal tunnel syndrome. 3. There is no electrodiagnostic evidence for ulnar neuropathy, brachial plexopathy, or cervical radiculopathy. Cony Gee MD, ISAEL 01/02/25 Psych Appearance: grossly normal Affect: normal affect Attitude: cooperative Assessment & Plan Assessment & Plan (1) Hyperesthesia of scar of finger: Comment: R Th Code(s): R20.3 - Hyperesthesia; L90.5 - Scar conditions and fibrosis of skin Category: Medical (2) Mass of right hand: Code(s): R22.31 - Localized swelling, mass and lump, right upper limb Category: Medical (3) Trigger thumb, right thumb: Code(s): M65.311 - Trigger thumb, right thumb Category: Medical (4) Carpal tunnel syndrome of left wrist: Code(s): G56.02 - Carpal tunnel syndrome, left upper limb Category: Medical Plan Assessment & Plan: 1. Right trigger thumb, S/P release DOS: 02/11/25 2. Right dorsal hand ganglion cyst superficial to 3rd metacarpal neck, S/P excision DOS: 02/11/25 The patient appears to be doing well post-operatively She has some mild stiffness & hypersensitivity about her thumb incision as she has not been using her hand for normal daily activities I ordered OT hand therapy to work on stretching, strengthening, desensitization, and normalizing function. She says BRENT Ogden ordered OT hand therapy but she has had difficulty getting an appointment booked to begin. She says for work she has to lift 50lb boxes. She says she is getting ready to go back to work and feels like she is ready to go back. We are not keeping her out of work at this time, though she should be allowed time to attend OT hand therapy. She will work on ROM exercises at home She should gently massage about the incision site to reduce her hypersensitivity 3. Left carpal tunnel syndrome, moderate-severe Symptoms intermittent, but daily, primarily at night She does not want to discuss this today, with her focus on her right hand She can follow up prn to discuss treatment options, when her right hand has recovered from her surgery. We did talk about the importance of not delaying treatment of this problem for too long. 4. History of right carpal tunnel syndrome, S/P release DOS: 05/23/23 With good resolution of her symptoms Scribed for Veda Jay MD by Cl Rivera, medical records technician, on 03/20/25 at 10:20 AM, EST. Coding Level of Care Code Global (36989) Diagnoses Hyperesthesia of scar of finger R20.3; L90.5 Mass of right hand R22.31 Trigger thumb, right thumb M65.311 Carpal tunnel syndrome of left wrist G56.02
[2025-03-20 09:55] VITALS: BMI 21.3
--- OUTSIDE RECORDS SUMMARY | 2025-03-20 10:20 | XMS_ITS | Encounter Summary ---
Author Organization [facility] Address [address] [place] [address] Phone Care Team Providers Care Car Oiler Name Role Phone Kylie Mercer MD Primary Care Provider [phone] Encounter Details Date Type Department Care Team (Late st Contact Info) Description 05/26/2017 Conversion Encounter [facility] [place] [address] [place] [address] Social History Tobacco Use Types Packs/Day Years [...] on filedocumented in this encounter Care Teams Car Oiler Relationship Specialty Start Date End Date Kylie Mercer MD [address] [place] [address] PCP - General 03/04/17 12/29/22 documented as of this encounter
--- OUTSIDE RECORDS SUMMARY | 2025-03-20 10:20 | XMS_ITS | Clinical Summary ---
Author Organization [facility] Address [address] [place] [address] Phone Care Team Providers Care Air Chipper Name Role Phone Physician, Pcp Unknown Primary [...] Maintenance Insurance MEDICAID - [place] Care Teams Air Chipper Relationship Specialty Start Date End Date Physician, Pcp Unknown PCP - General 06/19/24
--- OUTSIDE RECORDS SUMMARY | 2025-03-20 10:20 | XMS_ITS | Clinical Summary ---
Author Organization [facility] Address [address] [place] [id number] Phone Care Team Providers Care Malt Specifications Control Assistant Name Role Phone Unavailable Primary Care Provider [...] of 2 - 13+ 2-dose series) 2001 HPV Vaccines (1 - 3-dose SCDM series) 2015 COVID-19 Vaccine ( - 2023- season) 2024 Influenza Vaccines (#1) 2025 HIB Vaccines Completed 02/06/1990 IPV Vaccines Completed 11/16/1993, 01/22, 03/18/1989, Additional history exists MMR Vaccines Completed 02/23/2000, 09/08/1989 Hepatitis B Vaccines Completed 08/10/2000, 03/31/2000, 02/23/2000 Hepatitis A Vaccines Aged Out No long [...]
== END 2025-03-20 10:36 | disposition home or self-care (01) ==
LOC: HO.HOS 09:41
PROVIDERS: PCP Emergency Medicine; Visit Provider Orthopaedic Surgery
DX: R20.3 Hyperesthesia (principal); L90.5 Scar conditions and fibrosis of skin; R22.31 Localized swelling, mass and lump, right upper limb; M65.311 Trigger thumb, right thumb; G56.02 Carpal tunnel syndrome, left upper limb
CPT/HCPCS: 99024

== ENCOUNTER → 2025-03-20 09:40 | Outpatient (BNVA) | payer MEDICAID, SELFPAY | PROVIDERS: PCP Emergency Medicine; Visit Provider Orthopaedic Surgery | DX: M65.311 Trigger thumb, right thumb (principal); G56.02 Carpal tunnel syndrome, left upper limb; R20.3 Hyperesthesia; L90.5 Scar conditions and fibrosis of skin; R22.31 Localized swelling, mass and lump, right upper limb | CPT/HCPCS: 99212 ==

== ENCOUNTER 2025-04-15 13:42 | Outpatient (AMB) | payer MEDICAID, SELFPAY ==
[2025-04-15 13:46] VITALS: BMI 21.3
--- NOTE | 2025-04-15 13:46 | A.OFFVIS_ITS ---
Vital Signs 04/15/25 13:46 Height 5 ft 4 in Weight 124 lb BMI 21.3 Intake Visit Reasons: PO-Rt Thumb Trigger, Rt Dorsal hand mass exc 02/11 Intake Note: Jhon is a 34 year old left hand dominant female who presents today post- operatively for a ROM check status post Right Dorsal Hand Mass Excision & Right Trigger Thumb Release, DOS: 02/11/[address] Jay. She was last evaluated by Dr. Jay on 03/20/25 where she was advised there are no current work restrictions in place. Today, patient reports she continues having swelling of the right hand. She reports difficulty making a full fist. She will be having her first Occupational Therapy this week. She has also returned to work however she has had to leave work early due to the pain and inability to do her tasks. Patient expresses frustration on how she is unable to do things like brushing her hair. Significant other shares patient wakes up through the night, screaming in pain. Allergies hydrocodone (Vicodin) Allergy (Unknown, Verified 04/15/25 13:47) Unknown ibuprofen (IBUPROFEN) Adverse Reaction (Intermediate, Verified 04/15/25 13:47) HEADACHES From VICODIN Allergy (Unknown, Uncoded 04/15/25 13:47) ICTHY Motrin Allergy (Unknown, Uncoded 04/15/25 13:47) Unknown HPI HPI PO-Rt Thumb Trigger, Rt Dorsal hand mass exc 02/11: Details: Jhon is a 34 year old left hand dominant female who presents today post- operatively for a ROM check status post Right Dorsal Hand Mass Excision & Right Trigger Thumb Release, DOS: 02/11/[address] Jay. She was last evaluated by Dr. Jay on 03/20/25 where she was advised there are no current work restrictions in place. Today, patient reports she continues having swelling of the right hand. She reports difficulty making a full fist. She will be having her first Occupational Therapy this week. She has also returned to work however she has had to leave work early due to the pain and inability to do her tasks. Patient expresses frustration on how she is unable to do things like brushing her hair. Significant other shares patient wakes up through the night, screaming in pain. [facility] Medical History Migraines Asthma Surgical History H/O tubal ligation Social History Patient Tobacco Use Status: Current someday Tobacco user Current occupational status: employed Current occupation: [employer] / rt hand Review of Systems Const All systems reviewed & are unremarkable except as noted in HPI and below Physical Exam Vital Signs: BMI result Body Mass Index 21.3 Const General: no acute distress and alert Orientation/consciousness: patient oriented x3 Neuro General: patient oriented x3 Extrem Other: Evaluation of Right Upper Extremity: The patient is alert, oriented, and in no acute distress Neuro: Median, Ulnar, Radial nerves motor and sensory intact and sensation is normal to the tips of all digits Vascular: Cap refill brisk ROM: She can make a fist and extend all her digits She can oppose her thumb to all digits and the base of her small finger No locking or catching No palpable mass passing beneath the thumb a1 erika Some mild hypersensitivity over the incision site Trigger thumb scar well-healed Patient complains of occasional pain & clicking in the thumb IP joint. Again not seen today in clinic Patient reports a Hx of a cyst over the dorsal aspect of the 2nd CMC joint. No mass seen today Pathology report: 02/11/25 Diagnosis Soft tissue, right hand cyst, excision: Fibrovascular tissue with myxoid and cystic degeneration, consistent with ganglion cyst Nerve Conduction Study: Left-side only IMPRESSION: 1. This is an abnormal study. 2. There is electrodiagnostic evidence for left moderate-severe median neuropathy at the wrist, consistent with carpal tunnel syndrome. 3. There is no electrodiagnostic evidence for ulnar neuropathy, brachial plexopathy, or cervical radiculopathy. Cony Gee MD, ISAEL 01/02/25 Psych Appearance: grossly normal Affect: normal affect Attitude: cooperative Assessment & Plan Assessment & Plan (1) Hyperesthesia of scar of finger: Comment: R Th Code(s): R20.3 - Hyperesthesia; L90.5 - Scar conditions and fibrosis of skin Category: Medical (2) Mass of right hand: Code(s): R22.31 - Localized swelling, mass and lump, right upper limb Category: Medical (3) Trigger thumb, right thumb: Code(s): M65.311 - Trigger thumb, right thumb Category: Medical (4) Carpal tunnel syndrome of left wrist: Code(s): G56.02 - Carpal tunnel syndrome, left upper limb Category: Medical Plan Assessment & Plan: 1. Right trigger thumb, S/P release DOS: 02/11/25 2. Right dorsal hand ganglion cyst superficial to 3rd metacarpal neck, S/P exci delaney DOS: 02/11/25 The patient appears to be doing well post-operatively She has some mild stiffness & hypersensitivity about her thumb incision as she has not been using her hand for normal daily activities Patient should call OT for ROM and strengthening of R hand She says for work she has to lift 50lb boxes. She says she is getting ready to go back to work and feels like she is ready to go back. We are not keeping her out of work at this time, though she should be allowed time to attend OT hand therapy. She will work on ROM exercises at home She should gently massage about the incision site to reduce her hypersensitivity 3. Left carpal tunnel syndrome, moderate-severe Symptoms intermittent, but daily, primarily at night She does not want to discuss this today, with her focus on her right hand She can follow up prn to discuss treatment options, when her right hand has recovered from her surgery. We did talk about the importance of not delaying treatment of this problem for too long. 4. History of right carpal tunnel syndrome, S/P release DOS: 05/23/23 With good resolution of her symptoms Coding Level of Care Code Global (00324) Diagnoses Hyperesthesia of scar of finger R20.3; L90.5 Mass of right hand R22.31 Trigger thumb, right thumb M65.311 Carpal tunnel syndrome of left wrist G56.02
== END 2025-04-15 14:09 | disposition home or self-care (01) ==
LOC: HO.HOS 13:42
PROVIDERS: PCP Nurse Practitioner Family
DX: R20.3 Hyperesthesia (principal); L90.5 Scar conditions and fibrosis of skin; R22.31 Localized swelling, mass and lump, right upper limb; M65.311 Trigger thumb, right thumb; G56.02 Carpal tunnel syndrome, left upper limb
CPT/HCPCS: 99024

== ENCOUNTER → 2025-04-15 13:42 | Outpatient (BNVA) | payer MEDICAID, SELFPAY | PROVIDERS: PCP Nurse Practitioner Family | DX: M65.311 Trigger thumb, right thumb (principal); R20.3 Hyperesthesia; L90.5 Scar conditions and fibrosis of skin; R22.31 Localized swelling, mass and lump, right upper limb; G56.02 Carpal tunnel syndrome, left upper limb | CPT/HCPCS: 99212 ==

== ENCOUNTER 2025-04-30 12:03 | Outpatient (REF) | payer MEDICAID, SELFPAY ==
--- OUTSIDE RECORDS SUMMARY | 2025-04-30 11:00 | XMS_ITS | Encounter Summary ---
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 / Dentistry Diagnoses Healthcare maintenance Tiffany Dyson NP [address] [place] [address] Phone: tel: fax: Referral ID Status Reason Start Date Expiration Date Visits Requested Visits Authorized [id number] Authorized Consult and Treat 04/30/2025 04/30/2026 1 1 Reason for Visit * Reason Comments Transfer patient Encounter Details Date Type Department Care Team ([facility] st Contact Info) Description 04/30/2025 11:00 AM EDT Office Visit [facility] [address], [place] [phone] Tiffany Dyson NP [address] [place] [address] Low vitamin D level (Primary Dx); Tobacco use; Unintentional weight loss; Arthralgia of hip, unspecified laterality; Menorrhagia with regular cycle; Healthcare maintenance Social History Tobacco Use Types Packs/Day Years Used Date Smoking Tobacco: Every Day Cigarettes Passive Smoke Exposure: Current Smokeless Tobacco: Never Alcohol Use Standard Drinks/Week Comments Not Currently 0 (1 standard drink = 0.6 oz pur e alcohol) Depression Answer Date Recorded Patient Health Questionnaire-9 Score 12 04/30/2025 Patient Health Questionnaire-9 Score 12 04/30/2025 Last PHQ-9: Questionnaire Data Not on file 1 Housing Stability Answer Date Recorded What is [...] Date Recorded Patient Health Questionnaire-2 Score 3 04/30/2025 Internet Access Answer Date Recorded Internet Access [...] Sign Reading Time Taken Comments Blood Pressure 110/82 04/30/2025 11:17 AM EDT Pulse 81 04/30/2025 11:17 AM EDT Temperature 36.8 C (98.2 F) 04/30/2025 11:17 AM EDT Respiratory Rate 20 04/30/2025 11:17 AM EDT Oxygen Saturation 99% 04/30/2025 11:17 AM EDT Inhaled Oxygen Concentration - - Weight 55.9 kg (123 lb 3.2 oz) 04/30/2025 11:17 AM EDT Height 162.6 cm (5' 4 ) 04/30/2025 11:17 AM EDT Body Mass Index 21.15 04/30/2025 11:17 AM EDT documented in this encounter Functional Status * Over the past 2 weeks, how often have you been bothered by any of the following problems? Question Answer Date of Assessment Author Patient Health Questionnaire -2 Score 3 04/30/2025 11:53 AM EDT Debi Louis MA * Little interest or pleasure in doing things Answer Date of Assessment Author More than half the days 04/30/2025 11:53 AM EDT Debi Louis MA * Feeling down, depressed, or hopeless Answer Date of Assessment Author Several days 04/30/2025 11:53 AM DWAYNET Debi Louis MA * Trouble falling or staying asleep, or sleeping too much Answer Date of Assessment Author Several days 04/30/2025 11:53 AM DWAYNET Debi Louis MA * Feeling tired or having little energy Answer Date of Assessment Author Nearly every day 04/30/2025 11:53 AM EDT Debi Louis MA * Poor appetite or overeating Answer Date of Assessment Author Nearly every day 04/30/2025 11:53 AM DWAYNET Debi Louis MA * Feeling bad about yourself - or that you are a failure or have let yourself or your family down Answer Date of Assessment Author Several days 04/30/2025 11:53 AM Debi Weaver MA * Trouble concentrating on things, such as reading the newspaper or watching television Answer Date of Assessment Author Several days 04/30/2025 11:53 AM EDT Debi Louis MA * Moving or speaking so slowly that other people could have noticed? Or the opposite - being so fidgety or restless that you have been moving around a lot more than usual. Answer Date of Assessment Author Not at all 04/30/2025 11:53 AM Debi Weaver MA * Thoughts that you would be better off or hurting yourself in some way Answer Date of Assessment Author Not at all 04/30/2025 11:53 AM Debi Weaver MA * Patient Health Questionnaire-9 Score Answer Date of Assessment Author 12 04/30/2025 11:53 AM EDT Debi Louis MA * How difficult have these problems made it for you to do your work, take care of things at home, or get along with other people? Answer Date of Assessment Author Not difficult at all 04/30/2025 11:53 AM EDT Debi Low MA * Over the last 2 weeks, how often have you been bothered by any of the following problems? Question Answer Date of Assessment Author Feeling nervous, anxious, or on edge 2 04/30/2025 11:50 AM EDT Debi Louis MA Not being able to stop or co ntrol worrying 3 04/30/2025 11:50 AM EDT Debi Louis MA Worrying too much about diff erent things 3 04/30/2025 11:50 AM EDT Debi Louis MA Trouble relaxing 2 04/30/2025 11:50 AM EDT Debi Louis MA Being so restless that it is hard to sit still 3 04/30/2025 11:50 AM EDT Debi Louis MA Becoming easily annoyed or irritable 3 04/30/2025 11:50 AM EDT Debi Louis MA Feeling afraid as if somethi ng awful might happen 0 04/30/2025 11:50 AM DWAYNET Debi Louis MA ROBERTH-7 Total Score 16 04/30/2025 11:50 AM DWAYNET Debi Louis MA documented as of this encounter Progress Notes * Tiffany Dyson NP - 04/30/2025 11:00 AM EDT Subjective: Jhon Arcos is a 34 y.o. female who presents to the office for a transfer patient visit. Interim history: Jhon Arcos, 34-year-old female - Reports significant stress and difficulty gaining weight, described as very skinny - Hair loss noted, unsure of cause - History of low vitamin D, unable to tolerate prescribed vitamin D pills - Rare alcohol use, smokes cigarettes, has tried patches and medication for smoking cessation but experienced adverse reaction (tongue swelling, difficulty speaking) - History of anxiety since youth, previously took medication but discontinued due to side effects, currently manages symptoms without medication - Reports chronic joint and bone pain, including hands, hips, and frequent popping - History of foot and hand surgery; 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 - Reports fatigue and heavy menstrual periods - Noticed a lump in left breast recently; history of prior breast cyst, unsure of side - Family history of breast disease (mother's sister underwent breast surgery for multiple lumps) - Concerned about possible fibromyalgia due to widespread pain and symptoms Problem List[1] Surgical History[2] Family History[3] Social History Living situation: kids Employment/Education: [employer] Diet/exercise: losing weight Substance use: -alcohol rarely -tobacco cigarettes -opioids no Sexual activity: amab Contraception: tubal ligation Mental health: Patient Health Questionnaire-9 Score: 12 (04/30/2025 11:53 AM) Patient Health Questionnaire-2 Score: 3 (04/30/2025 11:53 AM) Thoughts that you would be better off or hurting yourself in some way: Not at all (04/30/2025 11:53 AM) ROBERTH-7 Total Score: 16 (04/30/2025 11:50 AM) No LMP recorded. Allergies[4] Review of Systems Constitutional: Positive for fatigue. Negative for chills and fever. HENT: Negative for congestion and sore throat. Eyes: Negative for visual disturbance. Respiratory: Negative for cough, shortness of breath and wheezing. Cardiovascular: Negative for chest pain and palpitations. Gastrointestinal: Negative for constipation, diarrhea, nausea and vomiting. Musculoskeletal: Positive for arthralgias and joint swelling. Skin: Negative for rash. Psychiatric/Behavioral: Negative for suicidal ideas. The patient is nervous/anxious. Vitals: 04/30/25 1117 BP: 110/82 BP Location: Left arm Patient Position: Sitting BP Cuff Size: Adult Pulse: 81 Resp: 20 Temp: 98.2 ??F (36.8 ??C) TempSrc: Oral SpO2: 99% Weight: 123 lb 3.2 oz (55.9 kg) Height: 5' 4 (1.626 m) Physical Exam Vitals reviewed. HENT: Head: Normocephalic and atraumatic. Nose: Nose normal. Eyes: Conjunctiva/sclera: Conjunctivae normal. Cardiovascular: Rate and Rhythm: Normal rate and regular rhythm. Pulmonary: Effort: Pulmonary effort is normal. Breath sounds: Normal breath sounds. Chest: Chest wall: No mass. Breasts: Right: Normal. No nipple discharge or tenderness. Left: Normal. No nipple discharge or tenderness. Musculoskeletal: Cervical back: Normal range of motion and neck supple. Neurological: General: No focal deficit present. Mental Status: She is alert. - HEENT: Thyroid palpation feels normal. - CARDIOVASCULAR: Cardiac auscultation performed. - LUNGS: Pulmonary auscultation performed. - ABDOMEN: Abdominal examination performed. - GENITOURINARY: Breast examination performed; left breast nodule palpated, described as benign. Assessment & Plan Low vitamin D level Orders: Vitamin D, 25-Hydroxy, Total, Immunoassay; Future Tobacco use Orders: Lipid Panel, Standard; Future Unintentional weight loss Orders: TSH; Future Comprehensive Metabolic Panel; Future Hemoglobin A1c; Future Arthralgia of hip, unspecified laterality Orders: Rheumatoid Factor; Future Sed Rate by Modified Westergren; Future C-reactive Protein; Future Menorrhagia with regular cycle Orders: CBC auto differential; Future Iron And Total Iron Binding Capacity; Future Healthcare maintenance Orders: Referral to [facility] Adult; Future Assessment & Plan Low vitamin D level: - Known low vitamin D level. - Ordered blood work to recheck vitamin D levels. Tobacco use: - Ongoing tobacco use. Previous attempts to quit with patches and medication, but experienced adverse effects. - Discussed impact of tobacco on health. Will continue to address smoking cessation at future visits. Unintentional weight loss: - Unintentional weight loss with inability to gain weight. Differential includes thyroid dysfunction and other underlying causes. - Ordered blood work to evaluate thyroid function and other potential etiologies. Arthralgia of hip, unspecified laterality: - Hip pain and popping, possible arthritis or autoimmune etiology. - Ordered blood work including autoimmune panel and rheumatoid factor to assess for inflammatory arthritis. Menorrhagia with regular cycle: - Heavy menstrual bleeding, possible contributor to fatigue and hair loss. - Ordered blood work to assess for anemia and iron deficiency. Healthcare maintenance: - Routine health maintenance addressed. - Offered flu and COVID vaccines; declined at this time. Will continue to offer at future visits. Ordered blood work for general health screening including cholesterol, blood sugar, liver, and kidneyfunction. Provided referrals for dental and eye care. Anxiety: - Chronic anxiety, currently well managed without medication. No indication for pharmacologic intervention at this time. - Recommended lifestyle modifications including exercise and outdoor activity for anxiety management. Offered option to revisit medication if symptoms worsen. Breast lump: - Palpable lump in left breast, likely benign on examination. Family history of breast disease noted. - Advised monitoring for changes in size or character. Recommended follow-up breast exam in one month if concerns persist. Will proceed with imaging if lump enlarges or becomes symptomatic. Emphasized importance of regular mammograms. Fibromyalgia (possible): - Muscle and joint pain possibly consistent with fibromyalgia. Diagnosis of exclusion; other etiologies to be ruled out with blood work. - Provided education regarding fibromyalgia. Will review blood work and consider referral to rheumatology if indicated. Will provide treatment options after further evaluation. Dental care: - Need for dental care identified. - Provided referral for dental evaluation. Eye care: - Need for eye care identified. - Provided referral for eye evaluation. Appointments - Schedule ophthalmology consultation - Schedule dental evaluation Routine Screening and Health Maintenance Eye care referral And dental No visits with results within 3 Month(s) from this visit. Latest known visit with results is: Office Visit on 01/01/2025 Component Date Value Ref Range Status TRICHOMONAS VAGINALIS DETECTION BY* 01/01/2025 NOT DETECTED Not Detect Final BACTERIAL VAGINOSIS DETECTION BY P* 01/01/2025 NEGATIVE Negative Final The BV organism targets of the Xpert Xpress MVP test can [...] of 14. JULIO GROUP DETECTION BY PCR 01/01/2025 DETECTED (A) Not Detect Final Julio glab krusei PCR 01/01/2025 NOT DETECTED Not Detect Final CT PCR 01/01/2025 NOT DETECTED Not Detect. Final A not detected test result does not exclude the possibilityof infection because test results can beaffected byimproper specimen collection, concurrent antibiotic therapy,or the [...] recommended in anycircumstance when false positive or f alse negative resultscould lead to adverse medical, social or psychologicalconsequences. NG PCR 01/01/2025 NOT DETECTED Not Detect. Final A not detected test result does not exclude the possibilityof infection because test results can beaffected byimproper specimen collection, concurrent antibiotic therapy,or the [...] recommended in anycircumstance when false positive or f alse negative resultscould lead to adverse medical, social or psychologicalconsequences. Routine Cancer Screening Breast CA: Cervical CA: Colon CA: Lung CA: Current Medications[5] Immunization History Administered Date(s) Administered DTP 1988, 01/03/1989, 03/18/1989, 02/06/1990, 11/16/1993 Hep B, Adolescent or Pediatric 02/23/2000, 03/31/2000, 08/10/2000 Hib (PRP-T) 02/06/1990 Influenza injectable quadrivalent IIV4 with preservative 05/23/2018 MMR 09/08/1989, 02/23/2000 OPV, Trivalent 1988, 01/03/1989, 03/18/1989, 02/06/1990, 11/16/1993 TD (adult), 2 Lf tetanus toxoid, preservative free, adsorbed 03/31/2000 Tdap 05/23/2018, 06/29/2021 This note was drafted using Ambient (AI) technology. The patient/patient's guardian has been informed and has consented to the use of this technology: Yes Based on our discussion, I have outlined the following instructions for you: - Get the blood tests that have been ordered. These will check your vitamin D level, thyroid function, possible causes of joint pain, anemia, iron levels, cholesterol, blood sugar, liver, and kidney health. - Keep working on quitting smoking. This will be discussed again at future visits. - Use exercise and spend time outdoors to help manage anxiety. - Watch your left breast lump for any changes in size, shape, or how it feels. If you notice changes or if you are still concerned after a month, get another breast exam. - If the breast lump gets bigger or starts to hurt, let your healthcare provider know so they can order more tests. - Remember to get regular mammograms to check your breast health. - Read the information provided about fibromyalgia to learn more about it. - Wait for your blood test results. Depending on what they show, you may be referred to a specialist for further care or offered treatment options. - Use the referrals given to you to schedule a dental check-up and an eye exam. Next appointment(s): - Schedule ophthalmology consultation - Schedule dental evaluation Thank you again for your visit, and we look forward to supporting you in your journey to better health. [1] Patient Active Problem List Diagnosis Asthma Decreased hearing Insomnia Nicotine dependence Back pain without sciatica Carpal tunnel syndrome Calcium deficiency Acute swimmer's ear of left side Pain in female pelvis ADHD Tobacco use Preop examination Mood disorder (CMS/HCC) Bacterial vaginosis Vaginal julio Low vitamin D level [2] Past Surgical History: Procedure Laterality Date TUBAL LIGATION TYMPANOPLASTY Left [3] Family History Problem Relation Name Age of Onset Hypertension Father Diabetes Maternal Grandmother Stroke Maternal Grandmother Heart disease Maternal Grandmother Breast cancer Maternal Grandmother [4] Allergies Allergen Reactions Valacyclovir Angioedema and Shortness of breath Hydrocodone Hives Ibuprofen Hives [5] Current Outpatient Medications Medication Sig Dispense Refill acetaminophen (Tylenol Extra Strength) 500 MG tablet Take 1-2 tablets (500-1,000 mg) by mouth every8 (eight) hours if needed for moderate pain. 50 tablet 1 albuterol (2.5 MG/3ML) 0.083% nebulizer solution Inhale 3 mL in the morning and 3 mL at noon and 3 mL in the evening. albuterol 108 (90 Base) MCG/ACT inhaler Inhale 2 puffs every 6 (six) hours if needed for wheezing. 18 g 11 cholecalciferol (D3-1000) 25 MCG (1000 UT) capsule Take 1 capsule (25 mcg) by mouth Once per day. 90 capsule 3 cyclobenzaprine (Flexeril) 10 MG tablet Take 1 tablet (10 mg) by mouth if needed in the morning andat bedtime for muscle spasms. 30 tablet 1 ergocalciferol (Vitamin D-2) 1.25 MG (35536 UT) capsule take 1 capsule by oral route every week for8 weeks (Patient not taking: Reported on 03/16/2024) 8 capsule 0 lidocaine (Lidoderm) 5 % patch Apply 1 patch topically Once per day. Remove & discard patch within 12 hours or as directed by MD. 30 patch 3 Lidocaine HCl 3 % cream Apply topically every 12 (twelve) hours. lidocaine-prilocaine (Emla) 2.5-2.5 % cream Apply by topical route 2-3 times daily as needed for pain (Patient not taking: Reported on 03/16/2024) 30 g 3 metroNIDAZOLE (Metrogel) 0.75 % vaginal gel Insert one applicator into vagina at bedtime for 7 nights 45 g 2 Multiple Vitamin (multivitamin) tablet Take 1 tablet by mouth Once per day. 90 tablet 3 nicotine (Nicoderm CQ) 14 MG/24HR patch Place 1 patch on the skin 1 (one) time each day at the sametime. 42 patch 1 nicotine polacrilex (Nicotine Mini) 2 MG lozenge Dissolve 1 lozenge (2 mg) in the mouth every 2 (two) hours if needed for smoking cessation. 100 lozenge 0 sertraline (Zoloft) 50 MG tablet TAKE 1 TABLET BY MOUTH EVERY DAY IN THE MORNING (Patient not taking: Reported on 03/16/2024) 30 tablet 0 No current facility-administered medications for this visit. documented in this encounter Miscellaneous Notes * Assessment & Plan Note - Tiffany Dyson NP - 04/30/2025 11:00 AM EDTAssociated Problem(s): Low vitamin D level Orders: Vitamin D, 25-Hydroxy, Total, Immunoassay; Future * Assessment & Plan Note - Tiffany Dyson NP - 04/30/2025 11:00 AM EDTAssociated Problem(s): Tobacco use Orders: Lipid Panel, Standard; Future documented in this encounter Plan of Treatment Upcoming Encounters Date Type Department Care Team (Late st Contact Info) Description 07/08/2025 11:30 AM EST Office Visit [facility] [address] [place] [address] Tiffany Dyson NP [address] [place] [address] Pending Results Name Type Priority Associated Diagnoses Date /Time Comprehensive Metabolic Panel Lab Routine Unintentional weight loss 04/30/2025 12:10 PM EDT Lipid Panel, Standard Lab Routine Tobacco use 04/30/2025 12:10 PM EDT Iron And Total Iron Binding Capacity Lab Routine Menorrhagia with regular cycle 04/30/2025 12:10 PM EDT C-reactive Protein Lab Routine Arthralgia of hip, unspecified laterality 04/30/2025 12:10 PM EDT Scheduled Orders Name Type Priority Associated Diagnoses Orde r Schedule TSH Lab STAT Unintentional weight loss Expected: 04/30/2025 (Approximate), Expires: 04/30/2026 Vitamin D, 25-Hydroxy, Total, Immunoassay Lab Routine Low vitamin D level Expected: 04/30/2025 (Approximate), Expires: 04/30/2026 Scheduled Referrals Name Type Priority Associated Diagnoses Orde r Schedule Referral to [facility] Adult Outpatient Referral Routine Healthcare maintenance Expected: 04/30/2025 (Approximate), Expires: 04/30/2026 documented as of this encounter Procedures Procedure Name Priority Date/Time Associated Diagnosis Comments CBC WITH AUTO DIFFERENTIAL Routine 04/30/2025 12:10 PM EDT Menorrhagia with regular cycle IRON AND TOTAL IRON BINDING CAPACITY Routine 04/30/2025 12:10 PM EDT Menorrhagia with regular cycle SED RATE BY MODIFIED WESTERGREN Routine 04/30/2025 12:10 PM EDT Arthralgia of hip, unspecified laterality RHEUMATOID FACTOR Routine 04/30/2025 12: 10 PM EDT Arthralgia of hip, unspecified laterality C-REACTIVE PROTEIN Routine 04/30/2025 12 :10 PM EDT Arthralgia of hip, unspecified laterality HEMOGLOBIN A1C Routine 04/30/2025 12:10 PM EDT Unintentional weight loss LIPID PANEL, STANDARD Routine 04/30/2025 12:10 PM EDT Tobacco use COMPREHENSIVE METABOLIC PANEL Routine 04/30/2025 12:10 PM EDT Unintentional weight loss documented in this encounter Results * Sed Rate by Modified Westergren (04/30/2025 12:10 PM EDT) Erythrocyte Sedimentation Rate 3 0 - 20 MM/HR [facility] Comment:Patients with polycy themia and many hemoglobin abnormalitiesmay have depressed sed rates whereas patients with anemiamay have elevated sed rates. Blood Venous blood specimen / Unknown 04/30/2025 12:10 PM EDT 04/30/2025 1:26 PM EDT us Tiffany Dyson DANCE HISTORIAN LAB BLOOD ORDERABLES Final Resul t [facility] [address] [place] [phone] * Rheumatoid Factor (04/30/2025 12:10 PM EDT) Rheumatoid Factor <13.0 <15.0 IU/mL [facility] Blood Venous blood specimen / Unknown 04/30/2025 12:10 PM EDT 04/30/2025 1:28 PM EDT us Tiffany Dyson DANCE HISTORIAN LAB BLOOD ORDERABLES Final Resul t [facility] [address] [place] [address] [phone] * (ABNORMAL) CBC auto differential (04/30/2025 12:10 PM EDT) White Blood Count 7.7 4.8 - 10.8 X10*3/uL [facility] Red Blood Count 4.27 4.20 - 5.50 X10*6/uL [facility] Hemoglobin 14.0 12.0 - 16.0 g/dl [facility] Hematocrit 42.1 37.0 - 47.0 % [facility] Mean Corpuscular Volume 98.6(H) 80.0 - 98.0 fL [facility] Mean Corpuscular Hemoglobin 32.8 27.0 - 33.0 pg [facility] Mean Corpuscular HGB Conc 33.3 31.0 - 35.0 g/dl [facility] Red Cell Distribution Width 13.5 11.0 - 16.0 % [facility] Platelet Count 194 160 - 400 X10*3/uL [facility] Mean Platelet Volume 11.5 9.4 - 12.3 fL [facility] Neutrophils Percent Auto 65.7 45 - 73 % [facility] Imm Gran Pct Auto 0.3 0.0 - 0.4 % [facility] Lymphocytes Percent Auto 22.9 20 - 40 % [facility] Monocytes Percent Auto 8.8 2 - 11 % [facility] Eosinophils Percent Auto 1.8 0 - 4 % [facility] Basophils Percent Auto 0.5 0 - 2 % [facility] NRBC Pct Auto 0.0 0.0 - 0.2 /100WBC [facility] Neutrophils Absolute Auto 5.1 2.0 - 8.3 x10*3/uL [facility] Imm Gran Abs Auto 0.02 0.00 - 0.03 X10*3/uL [facility] Lymphocytes Absolute Auto 1.8 1.2 - 4.9 X10*3/uL [facility] Monocytes Absolute Auto 0.7 0.1 - 1.2 X10*3/uL [facility] Eosinophils Absolute Auto 0.1 0.0 - 0.4 X10*3/uL [facility] Basophils Absolute Auto 0.0 0.0 - 0.2 X10*3/uL [facility] NRBC Abs Auto 0.000 0.0 - 0.012 X10*3/uL [facility] Blood Venous blood specimen / Unknown 04/30/2025 12:10 PM EDT 04/30/2025 1:26 PM EDT us Tiffany Dyson NP LAB BLOOD ORDERABLES Final Resul t Performing Organization Address City/[facility] Co de Phone Number [facility] [address] [place] [phone] * Hemoglobin A1c (04/30/2025 12:10 PM EDT) Hemoglobin A1c 5.2 <6.0 % [facility] Comment:Hemoglobin A1C Refer ence Range Adults: 4.8 - 6.0 % Non diabetic: < 6.0 % Goal: < 7.0 %Additional Action Suggested: > 8.0 %Note: Hemoglobin A1c results are invalid for patients with abnormal amounts of HbF. Blood transfusions may impact the HbA1c concentration in the patient sample. Estimated Average Glucose 103 mg/dL [facility] Comment:eAG = Estimated ave rage glucose which is %A1C expressed asaverage glucose, using the formula of the [id number] Glucose study (ADAG), Diabetes Care, Vol.31,#8,Feb. 2007 Blood Venous blood specimen / Unknown 04/30/2025 12:10 PM EDT 04/30/2025 1:26 PM EDT Tiffany Dyson NP LAB BLOOD ORDERABLES Final Resul t Performing Organization Address City/[facility]/ZIP Co de Phone Number [facility] [address] [place] [phone] documented in this encounter Visit Diagnoses Diagnosis Low vitamin D level- Primary Tobacco use Unintentional weight loss Loss of weight Arthralgia of hip, unspecified laterality Menorrhagia with regular cycle Healthcare maintenance documented in this encounter Additional Health Concerns Assessment Noted Time PHQ-9 Depression Total Score: 12 025 11:53 AM EDT documented as of this encounter Care Teams Supervisor Baking Relationship Specialty Start Date End Date Tiffany Dyson NP [address] [place] [address] PCP - General Family Medicine 04/30/25 documented as of this encounter
[2025-04-30 13:28] LABS: MANUAL DIFF FLAG NO
[2025-04-30 13:51] LABS: Hematocrit 42.1 % (37.0-47.0); Hemoglobin 14.0 g/dl (12.0-16.0); Imm Gran Abs Auto 0.02 X10*3/uL (0.00-0.03); Imm Gran Pct Auto 0.3 % (0.0-0.4); Lymphocytes Absolute Auto 1.8 X10*3/uL (1.2-4.9); Mean Corpuscular HGB Conc 33.3 g/dl (31.0-35.0); Mean Corpuscular Hemoglobin 32.8 pg (27.0-33.0); Mean Corpuscular Volume 98.6 fL (80.0-98.0); NRBC Abs Auto 0.000 X10*3/uL (0.0-0.012); NRBC Pct Auto 0.0 /100WBC (0.0-0.2); Platelet Count 194 X10*3/uL (160-400); Red Blood Count 4.27 X10*6/uL (4.20-5.50); White Blood Count 7.7 X10*3/uL (4.8-10.8)
[2025-04-30 14:46] LABS: Alanine Aminotransferase 37 U/L (0-31); Albumin Level 4.5 g/dL (3.5-5.0); Alkaline Phosphatase 63 U/L (39-117); Anion Gap 11 (12-20); Aspartate Amino Transferase 25 U/L (5-31); Blood Urea Nitrogen 10 mg/dL (9-16); Calcium 8.9 mg/dL (8.4-10.2); Carbon Dioxide 27 mmol/L (22-29); Chloride 106 mmol/L (96-108); Cholesterol 150 mg/dL (<200); Estimated Glomerular Filt Rate > 60; HDL Cholesterol 56 mg/dL (>40); Iron 58 mcg/dL (30-160); Percent Iron Saturation 23 % (15-50); Potassium 3.7 mmol/L (3.3-5.1); Sodium 140 mmol/L (135-145); Total Iron Binding Capacity 257 mcg/dL (228-428); Total Protein 7.2 g/dL (6.5-8.0); Triglycerides 99 mg/dL (<150); Unsaturated Iron Binding 199 ug/dL
--- OUTSIDE RECORDS SUMMARY | 2025-04-30 15:04 | XMS_ITS | Encounter Summary ---
Author Organization [employer] Address [address] [place] [address] 7 [place] [address] Care Team Providers Care Anthropological Linguist Name Role Phone Sabina Rodrigues NP Primary Care Provider [phone] Reason for Visit * Reason Onset Date Comments CHART PREP 04/29/2025 Encounter Details Date Type Department Care Team ([facility] st Contact Info) Description 04/29/2025 Telephone [facility] [address] [place] [address] Tiffany Dyson NP [address] [place] [address] CHART PREP Social History Tobacco Use Types Packs/Day Years [...] encounter Miscellaneous Notes * Telephone Encounter - Shade Wislon [place] - 04/29/2025 9:53 AM EDT Chart Prep Labs: not applicable Images: Hand x-ray 02/26/25 Referrals: pt saw ortho 04/15/25 Vaccines due: Covid and Flu Screenings: LMP Overdue care gaps: SBIRT, PHQ-9, ROBERTH-7, and Disability screen documented in this encounter Plan of Treatment Upcoming Encounters Date Type Department Care Team (Late st Contact Info) Description 07/08/2025 11:30 AM EST Office Visit [facility] [address] [place] [address] Tiffany Dyson NP [address] [place] [address] documented as of this encounter Visit Diagnoses Not on filedocumented in this encounter Additional Health Concerns Assessment Noted Time PHQ-9 Depression Total Score: 18 024 10:53 AM EDT documented as of this encounter Care Teams Anthropological Linguist Relationship Specialty Start Date End Date Sabina Rodrigues NP [address] [place] [address] PCP - General Family Medicine 01/23/25 04/29/25 documented as of this encounter
--- OUTSIDE RECORDS SUMMARY | 2025-04-30 15:04 | XMS_ITS | Encounter Summary ---
Author Organization [employer] Address [address]t [place] [address] Care Team Providers Care Animal Care Taker Name Role Phone Tiffany Dyson NP Primary Care Provider [phone] Encounter Details Date Type Department Care Team (Latest Contact Info) Description 04/30/2025 Travel Social History Tobacco Use Types Packs/Day Years [...] AM EDT documented as of this encounter Functional Status * Over the past 2 weeks, how often have you been bothered by any of the following problems? Question Answer Date of Assessment Author Patient Health Questionnaire -2 Score 3 04/30/2025 11:53 AM EDT Debi Louis MA * Little interest or pleasure in doing things Answer Date of Assessment Author More than half the days 04/30/2025 11:53 AM DWAYNET Debi Louis MA * Feeling down, depressed, or hopeless Answer Date of Assessment Author Several days 04/30/2025 11:53 AM Debi Weaver MA * Trouble falling or staying asleep, or sleeping too much Answer Date of Assessment Author Several days 04/30/2025 11:53 AM Debi Weaver MA * Feeling tired or having little energy Answer Date of Assessment Author Nearly every day 04/30/2025 11:53 AM Debi Weaver MA * Poor appetite or overeating Answer Date of Assessment Author Nearly every day 04/30/2025 11:53 AM Debi Weaver MA * Feeling bad about yourself - or that you are a failure or have let yourself or your family down Answer Date of Assessment Author Several days 04/30/2025 11:53 AM Debi Weaver MA * Trouble concentrating on things, such as reading the newspaper or watching television Answer Date of Assessment Author Several days 04/30/2025 11:53 AM Debi Weaver MA * Moving or speaking so slowly that other people could have noticed? Or the opposite - being so fidgety or restless that you have been moving around a lot more than usual. Answer Date of Assessment Author Not at all 04/30/2025 11:53 AM DWAYNET Debi Louis MA * Thoughts that you would be better off or hurting yourself in some way Answer Date of Assessment Author Not at all 04/30/2025 11:53 AM Debi Weaver MA * Patient Health Questionnaire-9 Score Answer Date of Assessment Author 12 04/30/2025 11:53 AM DWAYNET Debi Louis MA * How difficult have [...] or on edge 2 04/30/2025 11:50 AM DWAYENT Debi Louis MA Not being able to stop or co ntrol worrying 3 04/30/2025 11:50 AM DWAYNET Debi Louis MA Worrying too much about diff erent things 3 04/30/2025 11:50 AM DWAYNET Debi Louis MA Trouble relaxing 2 04/30/2025 11:50 AM DWAYNET Debi Louis MA Being so restless that it is hard to sit still 3 04/30/2025 11:50 AM Debi Weaver MA Becoming easily annoyed or irritable 3 04/30/2025 11:50 AM DWAYNET Debi Louis MA Feeling afraid as if somethi ng awful might happen 0 04/30/2025 11:50 AM Debi Weaver MA ROBERTH-7 Total Score 16 04/30/2025 11:50 AM Debi Weaver MA documented as of this encounter Plan of Treatment Upcoming Encounters Date Type Department Care Team (Late st Contact Info) Description 07/08/2025 11:30 AM EST Office Visit [facility] [address] [place] [address] Tiffany Dyson NP [address] [place] [address] documented as of this encounter Visit Diagnoses Not on filedocumented in this encounter Additional Health Concerns Assessment Noted Time PHQ-9 Depression Total Score: 12 025 11:53 AM EDT documented as of this encounter Care Teams Animal Care Taker Relationship Specialty Start Date End Date Tiffany Dyson NP [address] [place] [address] PCP - General Family Medicine 04/30/25 documented as of this encounter
--- OUTSIDE RECORDS SUMMARY | 2025-04-30 15:05 | XMS_ITS | Clinical Summary ---
Author Organization [facility] Address [address] [place] [address] Phone Care Team Providers Care Medical Office Administrator Name Role Phone Physician, Pcp Unknown Primary [...] 2007 Cervical Cancer Screening: Pap Smear 2009 HPV Vaccines (1 - 3-dose SCDM series) 2015 Social Influencers of Health Screening 05/01/2024 Depression Screening 07/25/2024 COVID-19 Vaccine ( season) 2025 Influenza Vaccine (#1) 2025 05/23/2018 Cholesterol Screening (Lipid Panel) 09/08/2027 09/08/2022, 09/08/2022 DTaP,Tdap,and Td Vaccines (9 - Td or Tdap) 06/29/2031 06/29/2021, 05/23/2018, 03/31/2000, Additional history exists RSV Immunization Adult Patients (1 - 1-dose 75+ series) 2063 HIB Vaccines Completed 02/06/1990 IPV Vaccines Completed 11/16/1993, 01/22, 03/18/1989, Additional history exists MMR Vaccines Completed 02/23/2000, 09/08/1989 Hepatitis B Vaccines Completed 08/10/2000, 03/31/2000, 02/23/2000 HIV Screening Completed 10/03/2023 Hepatitis C Screening Completed 10/03/2023, 024 Hepatitis A Vaccines Aged Out No long [...] C Screening (10/03/2023) Hepatitis C Screening Abstracted Historical Provider HEALTH MAINTENANCE Final Result * Lipid panel (09/08/2022) LDL/HDL Ratio 0 Comment:No interpretation Triglycerides 0 mg/dL Comment:No interpretation Cholesterol 0 mg/dL Comment:No interpretation HDL 0 mg/dL Comment:No interpretation LDL Cholesterol 0 mg/dL Comment:No interpretation Blood Venous blood specimen / Unknown us Historical Provider LAB BLOOD ORDERABLES Yvonne l Result from Last 3 Months or Most Recently Relevant to Health Maintenance Insurance MEDICAID - [place] Care Teams Medical Office Administrator Relationship Specialty Start Date End Date Physician, Pcp Unknown PCP - General 06/19/24
--- OUTSIDE RECORDS SUMMARY | 2025-04-30 15:05 | XMS_ITS | Encounter Summary ---
Author Organization [facility] Address [address] [place] [address] Phone Care Team Providers Care Blower Operator Name Role Phone Kylie Mercer MD Primary Care Provider [phone] Encounter Details Date Type Department Care Team (Late st Contact Info) Description 05/26/2017 Conversion Encounter [facility] [place] [address] [place] [address] Social History Tobacco Use Types Packs/Day Years [...] on filedocumented in this encounter Care Teams Blower Operator Relationship Specialty Start Date End Date Kylie Mercer MD [address] [place] [address] PCP - General 03/04/17 12/29/22 documented as of this encounter
--- OUTSIDE RECORDS SUMMARY | 2025-04-30 15:05 | XMS_ITS | Encounter Summary ---
Author Organization [employer] Address [address] [place] [address] Care Team Providers Care Playground Aide Name Role Phone Mansi JettP Primary Care Provider [phone] Appram, Sabina ELECTRICAL LOGGER Primary Care Provider [phone] Alaina Falcon DOMESTIC HELPER Primary Care Provider [phone] Appram, Sabina ELECTRICAL LOGGER Primary Care Provider [phone] Tiffany Dyson ELECTRICAL LOGGER Primary Care Provider Reason for Visit * Reason Onset Date Comments Nurse Triage 02/06/2024 Encounter Details Date Type Department Care Team (Late st Contact Info) Description 02/06/2024 Telephone [facility] [address] [place] [address] Mansi Jett FNP [address] [place] [address] Nurse Triage Social History Tobacco Use Types [...] Triage call Pt reports being seen in [facility] ED this morning. Pt reports receiving a toradol injection but, left due to long waiting time. Pt is calling requesting a note for absence from work. Pt reports pain in left foot so intense Pt unable to stand on foot. Pt is advised referral is in to Dr. Saxena,plant maintenance engineer and Pt is awaiting call for apt with this Doctor. Pt reprots a hot/cold sensation which h as intensified over the weekend. Pt is advised to come to [facility] today open till 8pm for provider to see Pt and to obtain excuse for work. Pt agrees with this disposition and insurnace is verified as active. Request for [facility] ED report is sent . Protocol Used: [...] become worse * Telephone Encounter - Francisco Dempsey - 02/06/2024 10:09 AM EDT Symptom: Foot [...] Description 07/08/2025 11:30 AM EST Office Visit [facility] [address] [place] [address] Tiffany Dyson NP [address] [place] [address] documented as of this encounter Visit Diagnoses Not on filedocumented in this encounter Additional Health Concerns Assessment Noted Time PHQ-9 Depression Total Score: 18 024 10:53 AM EDT documented as of this encounter Care Teams Playground Aide Relationship Specialty Start Date End Date Mansi Jett FNP [address] [place] [address] PCP - General Family Medicine 08/16/22 03/27/24 Sabina Rodrigues NP [address] [place] [address] PCP - General Family Medicine 03/28/24 05/23/24 Alaina Falcon FNP [address] [place] [address] PCP - General Family Medicine 05/24/24 01/22/25 Sabina Rodrigues NP [address] [place] [address] PCP - General Family Medicine 01/23/25 04/29/25 Tiffany Dyson NP [address] [place] [address] PCP - General Family Medicine 04/30/25 documented as of this encounter
--- OUTSIDE RECORDS SUMMARY | 2025-04-30 15:05 | XMS_ITS | Clinical Summary ---
Author Organization [facility] Address [address] [place] [address] Phone Care Team Providers Care Classroom Technology Technician Name Role Phone Unavailable Primary Care Provider [...] Vaccines (1 - 3-dose SCDM series) 2015 Influenza Vaccines (#1) 2025 COVID-19 Vaccine ( - 2024- season) 2025 HIB Vaccines Completed 02/06/1990 IPV Vaccines [...]
--- OUTSIDE RECORDS SUMMARY | 2025-04-30 15:05 | XMS_ITS | Encounter Summary ---
Author Organization [employer] Address [address] [place] [address] [address] [address] Care Team Providers Care Wagon Driller Name Role Phone Mnasi Jett RESEARCH PHYSIOLOGIST Primary Care Provider [phone] Appram, Sabina PARTITION SETTER Primary Care Provider [phone] Alaina Falcon RESEARCH PHYSIOLOGIST Primary Care Provider [phone] Appram, Sabina PARTITION SETTER Primary Care Provider [phone] Tiffany Dyson PARTITION SETTER Primary Care Provider [phone] Encounter Details Date Type Department Care Team (Late st Contact Info) Description 09/20/2022 Orders Only [facility] MED[facility]INE [address] [place], [place] [phone] Mansi Jett FNP [address] [place], [place] [phone] Vitamin D deficiency (Primary Dx) Social History [...] Description 07/08/2025 11:30 AM EST Office Visit [facility] [address] [facility] [place] [address] Tiffany Dyson, BRISA [address] [facility] [place] [address] documented as of this encounter Visit Diagnoses Diagnosis Vitamin D deficiency- Primary documented in this encounter Additional Health Concerns Assessment Noted Time PHQ-9 Depression Total Score: 10 023 10:29 AM EST documented as of this encounter Care Teams Wagon Driller Relationship Specialty Start Date End Date Mansi Jett FNP [address] [facility] [place] [address] PCP - General Family Medicine 08/16/22 03/27/24 Sabina Rodrigues NP [address] [place] [address] PCP - General Family Medicine 03/28/24 05/23/24 Alaina Falcon FNP [address] [facility] [address] PCP - General Family Medicine 05/24/24 01/22/25 Sab[place] [address] PCP - General Family Medicine 01/23/25 04/29/25 Tiffany Dyson NP Thuan [facility] [address] PCP - General Family Medicine 04/30/25 documented as of this encounter
--- OUTSIDE RECORDS SUMMARY | 2025-04-30 15:05 | XMS_ITS | Encounter Summary ---
Author Organization [employer] Address [address] [facility] 7t [place] [address] Care Team Providers Care Reducing Machine Operator Name Role Phone Alaina Falcon WELFARE VISITOR Primary Care Provider [phone] Sabina Rodrigues ARMED SECURITY GUARD Primary Care Provider [phone] Tiffany Dyson ARMED SECURITY GUARD Primary Care Provider [phone] Reason for Visit * Reason Comments Med Refill Encounter Details Date Type Department Care Team (Late st Contact Info) Description 11/02/2024 Refill [facility] [address] [place], [place] [phone] Angel Gatica MD [address] [place] [address] Social History Tobacco Use Types Packs/Day Years [...] Description 07/08/2025 11:30 AM EST Office Visit [facility] [address] [place] [address] Tiffany Dyson NP [address] [place] [address] documented as of this encounter Visit Diagnoses Not on filedocumented in this encounter Additional Health Concerns Assessment Noted Time PHQ-9 Depression Total Score: 18 024 10:53 AM EDT documented as of this encounter Care Teams Reducing Machine Operator Relationship Specialty Start Date End Date Alaina Falcon FNP [address] [place] [address] PCP - General Family Medicine 05/24/24 01/22/25 Sabina Rodrigues NP [address] [place] [address] PCP - General Family Medicine 01/23/25 04/29/25 Tiffany Dyson NP [address] [place] [address] PCP - General Family Medicine 04/30/25 documented as of this encounter
--- OUTSIDE RECORDS SUMMARY | 2025-04-30 15:05 | XMS_ITS | Encounter Summary ---
Author Organization [employer] Address [address] [place] [address] 7 [place] [address] Care Team Providers Care Athletic Coordinator Name Role Phone Alaina Falcon ROUTE DRIVER SALESPERSON Primary Care Provider Sabina Rodrigues PRESENTATION TEAM MEMBER Primary Care Provider [phone] Tiffany Dyson PRESENTATION TEAM MEMBER Primary Care Provider [phone] Reason for Visit * Reason Onset Date Comments Med Refill 01/01/2025 Encounter Details Date Type Department Care Team (Late st Contact Info) Description 01/01/2025 Refill [facility] [address] [place], [place] [phone] Name, MD Myles [address] [place], [place] [phone] Bacterial vaginosis Social History Tobacco Use Types [...] Description 07/08/2025 11:30 AM EST Office Visit [facility] [address] [place] [address] Tiffany Dyson NP [address] [place] [address] documented as of this encounter Visit Diagnoses Diagnosis Bacterial vaginosis Unspecified vaginitis and vulvovaginitis documented in this encounter Additional Health Concerns Assessment Noted Time PHQ-9 Depression Total Score: 18 024 10:53 AM EDT documented as of this encounter Care Teams Athletic Coordinator Relationship Specialty Start Date End Date Alaina Falcon FNP [address] [place], [place] PCP - General Family Medicine 05/24/24 01/22/25 Sabina Rodrigues NP [address] [place] [address] PCP - General Family Medicine 01/23/25 04/29/25 Tiffany Dyson NP [address] [place] [address] PCP - General Family Medicine 04/30/25 documented as of this encounter
--- OUTSIDE RECORDS SUMMARY | 2025-04-30 15:05 | XMS_ITS | Encounter Summary ---
Author Organization [employer] Address [address] [place] [address] 7 [place] [address] Care Team Providers Care Patient Services Specialist Name Role Phone Alaina Falcon SNOUT PULLER Primary Care Provider [phone] Sabina Rodrigues DRUM PULLER Primary Care Provider [phone] Tiffany Dyson DRUM PULLER Primary Care Provider [phone] Reason for Visit * Reason Onset Date Comments Med Refill 09/14/2024 Encounter Details Date Type Department Care Team (Late st Contact Info) Description 09/14/[address] [facility] MEDICINE [address] [place], [place] [phone] Name, MD Myles [address] [place], [place] [phone] Bacterial vaginosis Social History Tobacco Use Types [...] Description 07/08/2025 11:30 AM EST Office Visit [facility] MEDICINE [address] [place] [address] Tiffany Dyson NP [address] [place] [address] documented as of this encounter Visit Diagnoses Diagnosis Bacterial vaginosis Unspecified vaginitis and vulvovaginitis documented in this encounter Additional Health Concerns Assessment Noted Time PHQ-9 Depression Total Score: 18 024 10:53 AM EDT documented as of this encounter Care Teams Patient Services Specialist Relationship Specialty Start Date End Date Alaina Falcon FNP [address] [place], [place] PCP - General Family Medicine 05/24/24 01/22/25 Sabina Rodrigues NP [address] [place] [address] PCP - General Family Medicine 01/23/25 04/29/25 Tiffany Dyson NP [address] [place] [address] PCP - General Family Medicine 04/30/25 documented as of this encounter
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
--- OUTSIDE RECORDS SUMMARY | 2025-04-30 15:05 | XMS_ITS | Encounter Summary ---
Author Organization [employer] Address [address] [place] [address] [address] [place] [address] Care Team Providers Care Global Recruiter Name Role Phone Alaina Falcon Primary Care Provider [phone] Sabina Rodrigues NEON LIGHT INSTALLER Primary Care Provider [phone] Tiffany Dyson NEON LIGHT INSTALLER Primary Care Provider [phone] Reason for Visit * Reason Onset Date Comments Med Refill 01/01/2025 Encounter Details Date Type Department Care Team (Late st Contact Info) Description 01/01/2025 Telephone [facility] [address] [place], [place] [phone] Alaina Falcon FNP [address] [place], [place] [phone] Med Refill Social History Tobacco Use Types Packs/Day Years [...] encounter Miscellaneous Notes * Telephone Encounter - Umm Campuzano RN - 01/01/2025 12:14 PM EDT Pt has already been triaged and is scheduled today for evaluation. * Telephone Encounter - Ginna Elmore LPN - 01/01/2025 10:02 AM EDT Pcp off.Please review request below * Telephone Encounter - Barrera Pratt - 01/01/2025 9:51 AM EDT TC from pt requesting medication refill. Medications needing refill: metroNIDAZOLE (Metrogel) 0.75 % vaginal gel To be sent to: [facility]/pharmacy #[id number] [place], [place] - [address] [place] [address] documented in this encounter Plan of Treatment Upcoming Encounters Date Type Department Care Team (Late st Contact Info) Description 07/08/2025 11:30 AM EST Office Visit [facility] [address] [place] [address] Tiffany Dyson, BRISA [address] [place] [address] documented as of this encounter Visit Diagnoses Not on filedocumented in this encounter Additional Health Concerns Assessment Noted Time PHQ-9 Depression Total Score: 18 024 10:53 AM EDT documented as of this encounter Care Teams Global Recruiter Relationship Specialty Start Date End Date Alaina Falcon FNP [address] [place] [address] PCP - General Family Medicine 05/24/24 01/22/25 Sabina Rodrigues NP [address] [place] [address] PCP - General Family Medicine 01/23/25 04/29/25 Tiffany Dyson NP [address] [place] [address] PCP - General Family Medicine 04/30/25 documented as of this encounter
[2025-04-30 15:06] LABS: Thyroid Stimulating Hormone 0.66 uIU/mL (0.32-4.0)
== END 2025-04-30 12:04 | disposition home or self-care (01) ==
LOC: HO.HHCL 12:03
PROVIDERS: PCP Nurse Practitioner Family; Visit Provider Nurse Practitioner Family
DX: N92.0 Excessive and frequent menstruation with regular cycle (principal); M25.559 Pain in unspecified hip; R63.4 Abnormal weight loss; R79.89 Other specified abnormal findings of blood chemistry; Z72.0 Tobacco use
CPT/HCPCS: 36415; 80053; 80061; 82306; 83036; 83540; 84443; 85025; 85652; 86140; 86431